=== PATIENT | female | born 1990 | race Caucasian/White ===

== ENCOUNTER 2016-09-22 10:52 | Inpatient (IN) ==
--- NOTE | 2016-09-22 11:34 | EKG Report ---
Test Performed on : 09/22/2016 11:31:05 AM Test Reason : NUMBNESS Blood Pressure : / mmHG Vent. Rate : 060 BPM Atrial Rate : 060 BPM P-R Int : 134 ms QRS Dur : 084 ms QT Int : 418 ms P-R-T Axes : 052 053 017 degrees QTc Int : 418 ms Normal sinus rhythm. Normal ECG When compared with ECG of 30-MAY-2016 13:25, Vent. rate has decreased BY 66 BPM T wave inversion now evident in Anterior leads Unconfirmed Result
[2016-09-22] MEDS ORDERED: NS 1,000 ML IV ONE (11:37)
--- NOTE | 2016-09-22 12:19 | Diag Imaging Result Doc PS360 ---
EXAM: HEAD W/O CONTRAST HISTORY: NUMBNESS COMPARISON: 06/09/2016 FINDINGS: There is encephalomalacia from an old right-sided infarct. No parenchymal hemorrhage. No epidural or subdural hematoma. No subarachnoid hemorrhage. No mass identified on this noncontrasted exam. No hydrocephalus. No sinus opacification and no air-fluid levels. IMPRESSION: 1.No hemorrhage 2.Old right infarct. Electronically signed by Blue Workman 09/22/2016 12:17 PM
[2016-09-22 12:30] LABS: URINE CULTURE PL NEEDED? NO
[2016-09-22] MEDS ORDERED: NORCO-7.5 PO ONE (12:40)
[2016-09-22] MEDS ORDERED: NORCO-7.5 ONE (12:41)
[2016-09-22 12:45] LABS: UR AMPHETAMINES QUAL NONE DETECTED (NONE DETECT); UR BARBITUATES QUAL NONE DETECTED (NONE DETECT); UR BENZODIAZEPIN QUAL PRESUMPTIVE POSITIVE (NONE DETECT); UR CANNABINOIDS QUAL NONE DETECTED (NONE DETECT); UR COCAINE QUAL NONE DETECTED (NONE DETECT); UR MDMA QUAL NONE DETECTED (NONE DETECT); UR METHADONE QUAL NONE DETECTED (NONE DETECT); UR METHAMPHETAMINE QUAL NONE DETECTED (NONE DETECT); UR OPIATES QUAL PRESUMPTIVE POSITIVE (NONE DETECT); UR OXYCODONE QUAL NONE DETECTED (NONE DETECT); UR PCP QUAL NONE DETECTED (NONE DETECT); UR TCA QUAL PRESUMPTIVE POSITIVE (NONE DETECT)
[2016-09-22 12:58] LABS: BILIRUBIN URINE NEGATIVE (NEGATIVE); BLOOD URINE NEGATIVE (NEGATIVE); CLARITY CLEAR (CLEAR); COLOR YELLOW; GLUCOSE URINE NEGATIVE (NEGATIVE); LEUKOCYTES URINE NEGATIVE (NEGATIVE); NITRITE URINE NEGATIVE (NEGATIVE); PH URINE 6.5; PROTEIN URINE NEGATIVE (NEGATIVE); UROBILINOGEN URINE NORMAL
[2016-09-22 13:01] LABS: URINE EPITHELIAL CELLS <10 /HPF (<10); URINE SOURCE CLEAN CATCH
--- NOTE | 2016-09-22 13:06 | Diag Imaging Result Doc PS360 ---
EXAM: CHEST-1 VIEW HISTORY: NUMBNESS COMMENT: Compared to the previous study of 06/13/2016 the alveolar opacities which were present previously have almost completely resolved. There is some residual atelectasis in the left base and blunting of the left costophrenic angle. There is still some volume loss with shift of the mediastinum to the left. IMPRESSION: Residual left lower lobe atelectasis and small pleural effusion. Electronically signed by Thuan Eli 09/22/2016 1:03 PM
[2016-09-22 13:22] LABS: MANUAL DIFF NEEDED? NO
[2016-09-22 13:26] LABS: EOS# 0.01 X1000 (0.0-0.7); EOS% 0.2 % (0.0-10.0); HEMOGLOBIN 14.2 g/dL (12.0-16.0); IMM GRAN# 0.01 X1000 (0.0-0.04); IMM GRAN% 0.2 % (0.0-0.5); LYMPH# 1.82 X1000 (1.2-3.4); LYMPH% 39.9 % (20.5-51.1); MCH 27.6 PG (27-31); MCHC 32.3 g/dL (33-37); MCV 85.4 FL (81-99); MONO# 0.22 X1000 (0.11-0.59); MONO% 4.8 % (1.7-9.3); MPV 9.6 FL (7.4-10.4); NEUT% 54.9 % (42.2-75.2); PLT 206 X1000 (130-400); RBC 5.15 XMIL (4.2-5.4)
[2016-09-22 13:52] LABS: INR 1.03 (0.86-1.15); PROTIME 13.8 Seconds (12.1-15.5)
[2016-09-22 13:53] LABS: AGAP 11; ALBUMIN 4.4 g/dL (3.5-5.0); ALKALINE PHOSPHATASE 98 U/L (32-104); BUN 11 mg/dL (8-22); CALCIUM 8.9 mg/dL (8.8-10.2); CHLORIDE 104 mmol/L (98-107); COSMO 283; GOT 24 U/L (10-30); GPT 22 U/L (10-36); POTASSIUM 3.9 mmol/L (3.5-5.1); PTT PL 28.1 Seconds (22.6-43.9); SODIUM 143 mmol/L (136-145); TCO2 27 mmol/L (25-35); TOTAL PROTEIN 7.3 g/dL (6.3-8.3)
--- NOTE | 2016-09-22 14:04 | PROVIDER DOCUMENTATION ---
This chart was entered by Carolann Lopez Scribe, acting as scribe for Adrian Law MD. HPI-Neurological Disorder - General Chief Complaint: Numbness Stated Complaint: STROKE LIKE SX Time Seen by Provider: 09/22/16 11:08 Source: patient Allergies/Adverse Reactions: Patient Allergies Allergy/AdvReac Type Severity Reaction Status Date / Time amoxicillin trihydrate * Allergy Mild RASH Verified 09/22/16 11:08 [From Amoxil] Home Medications: Home Medication List Medication Instructions Recorded Confirmed Last Taken Type Amitriptyline [Elavil] 25 mg PO QHS 09/22/16 09/22/16 Unknown History Ascorbic Acid 500 mg PO DAILY 09/22/16 09/22/16 Unknown History Aspirin 81 mg PO DAILY 09/22/16 09/22/16 Unknown History Baclofen 10 mg PO TID 09/22/16 09/22/16 Unknown History Buspirone HCl 7.5 mg PO BID 09/22/16 09/22/16 Unknown History Clonazepam 1 mg PO BID 09/22/16 09/22/16 Unknown History Fentanyl 1 each TD DIRECTED 09/22/16 09/22/16 Unknown History Gabapentin 900 mg PO TID 09/22/16 09/22/16 Unknown History Guaifenesin [Guaifenesin ER] 1,200 mg PO BID 09/22/16 09/22/16 Unknown History Levetiracetam 500 mg PO BID 09/22/16 09/22/16 Unknown History Metoprolol Tartrate 12.5 mg PO BID 09/22/16 09/22/16 Unknown History Oxycodone HCl 5 mg PO Q8H PRN PRN 09/22/16 09/22/16 Unknown History Ranitidine [Zantac] 150 mg PO DAILY 09/22/16 09/22/16 Unknown History Sennosides [Senna] 8.6 mg PO BID 09/22/16 09/22/16 Unknown History Venlafaxine E.r. [Effexor Xr] 75 mg PO DAILY 09/22/16 09/22/16 Unknown History - History of Present Illness-Neuro Nature of Presenting Problem: Pt is a 26 yof who came to the ED with a cc of stroke like symptoms. 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 Pt reports this year before her strokes she had a hole in her heart repaired. Pt mother reports the pt was sleeping in the chair last night and when she woke up she asked where she was. Then the pt was saying he left side could not move, which has been paralysed for a year now. Pt was confused, then the pt came to and was stating that it feels like she was having another stroke because the right side of her body was weak and her right eye feels like its about to fall out. Pt can normally move the right side of her body. Severity: reports: moderate Onset/Duration: reports: last night Timing: reports: still present Character of Altered Mental Status: reports: confused, agitated Any recent trauma/injury?: reports: none Character of Deficits: reports: new weakness, altered sensation, vision problem/ glaucoma New weakness or altered sensation location:: reports: RUE, RLE Cognitive Baseline: alert, oriented x3 Gait Baseline: unable to walk Associated Symptoms: reports: weakness Similar Symptoms Previously?: Yes Recently seen or treated by another doctor?: Yes Review of Systems - Adult - REVIEW OF SYSTEMS - ADULT Constitutional: denies: chills, fever Eyes: reports: no symptoms reported Ears, Nose, Mouth & Throat: reports: no symptoms reported Cardiovascular: denies: chest pain, irregular heart rate Respiratory: reports: no symptoms reported Gastrointestinal: denies: diarrhea, nausea, vomiting Genitourinary: reports: no symptoms reported Musculoskeletal: reports: no symptoms reported Integumentary: reports: no symptoms reported Neurological: reports: headache/migraines, numbness. denies: seizure, slurred speech, syncope Psychiatric: denies: anxiety, emotional problems Endocrine: reports: no symptoms reported Hematologic/Lymphatic: reports: no symptoms reported Allergic/Immunologic: reports: no symptoms reported All Other Systems: Reviewed and Negative Past History - Adult - PAST MEDICAL HISTORY-ADULT Review of Records: reports: Old Records Reviewed, Nursing Assessment Review, Medications Reviewed, Social history reviewed & non-contributory. Major Childhood Illnesses: reports: denies history Cardiovascular: reports: denies history Respiratory: reports: asthma Gastrointestinal: reports: denies history Obstetrical/Gynecological: reports: denies history Genitourinary: reports: denies history Musculoskeletal: reports: other (spina bifida) Neurological: reports: denies history Endocrine/Immune: reports: denies history Other Conditions: reports: denies history - PRIOR SURGERIES/PROCEDURES Surgical/Procedure History: reports: cholecystectomy, , other (spina bifida sx) - IMMUNIZATION STATUS Childhood Immunizations: See Nurse Assessment Flu Vaccine: See Nurse Assessment Physical Exam- Neurological - Physical Exam-Neuro Initial Vital Signs Reviewed: Yes General Appearance: alert, mild distress, thin Eye Exam: bilateral eye: normal inspection, PERRL HENMT: normocephalic/atraumatic, moist mucous membranes Head Injury: no evidence of injury Neck: non-tender, full range of motion Respiratory: chest non-tender, lungs clear, normal breath sounds Cardiovascular: normal peripheral pulses, regular rate, rhythm Abdominal Exam: normal bowel sounds, non tender, soft Extremity: other (no strength in left side; right side). negative: normal gait hi lo driver Exam: normal hearing, normal speech Motor/Sensory: weak motor strength LUE, weak motor strength LLE Neurologic: grossly normal Integumentary: normal turgor Psych/Mental Status: normal mood/affect, normal thought content, normal thought process, oriented x 3 Progress - PLAN OF CARE/RESULTS Progress/Plan/Lab Results: Vital Signs - 8 hr 09/22/16 10:58 09/22/16 11:30 09/22/16 12:08 Pulse Rate 63 60 54 L Respiratory Rate 20 22 21 Blood Pressure 115/071 110/73 105/5 O2 Sat by Pulse Oximetry 97 96 97 09/22/16 12:15 09/22/16 12:30 09/22/16 12:45 Pulse Rate 56 L 61 61 Respiratory Rate 21 17 19 Blood Pressure 109/65 112/71 118/77 O2 Sat by Pulse Oximetry 96 95 97 09/22/16 13:00 09/22/16 13:15 09/22/16 13:30 Pulse Rate 51 L 52 L 54 L Respiratory Rate 16 22 19 Blood Pressure 109/70 114/73 116/74 O2 Sat by Pulse Oximetry 99 96 97 Laboratory Results - last 24 hr 09/22/16 09/22/16 09/22/16 12:21 12:21 12:21 WBC RBC Hgb Hct MCV MCH MCHC RDW Std Deviation Plt Count MPV Immature Gran % (Auto) Neut % (Auto) Lymph % (Auto) [place] % (Auto) Eos % (Auto) Baso % (Auto) Immature Gran # (Auto) Neut # (Auto) Lymph # (Auto) [place] # (Auto) Eos # (Auto) Baso # (Auto) PT INR APTT (Factor Assay) Sodium Potassium Chloride Carbon Dioxide Anion Gap BUN Creatinine Estimated GFR/1.73 m2 BUN/Creatinine Ratio Glucose Calculated Osmolality Calcium Magnesium Total Bilirubin AST ALT Alkaline Phosphatase Troponin T Total Protein Albumin Globulin Albumin/Globulin Ratio Urine Source CLEAN CATCH Urine Color YELLOW Urine Clarity CLEAR Urine pH 6.5 Ur Specific [place] 1.010 Urine Protein NEGATIVE Urine Ketones NEGATIVE Urine Blood NEGATIVE Urine Nitrite NEGATIVE Urine Bilirubin NEGATIVE Urine Urobilinogen NORMAL Urine Microscopic RBC Not Reportable Urine WBC NEGATIVE Ur Epithelial Cells <10 Urine Glucose NEGATIVE Urine Test NEGATIVE Urine Opiates Screen PRESUMPTIVE POSITIVE A Ur Oxycodone Screen NONE DETECTED Urine Methadone Screen NONE DETECTED Ur Barbituates Screen NONE DETECTED Ur Tricyclics Screen PRESUMPTIVE POSITIVE A Ur Phencyclidine Scrn NONE DETECTED Ur Amphetamines Screen NONE DETECTED U Methamphetamines Scrn NONE DETECTED Urine MDMA Screen NONE DETECTED U Benzodiazepines Scrn PRESUMPTIVE POSITIVE A Urine Cocaine Screen NONE DETECTED U Cannabinoids Screen NONE DETECTED 09/22/16 09/22/16 09/22/16 13:10 13:10 13:10 WBC 4.56 L RBC 5.15 Hgb 14.2 Hct 44.0 MCV 85.4 MCH 27.6 MCHC 32.3 L RDW Std Deviation 14.0 Plt Count 206 MPV 9.6 Immature Gran % (Auto) 0.2 Neut % (Auto) 54.9 Lymph % (Auto) 39.9 [place] % (Auto) 4.8 Eos % (Auto) 0.2 Baso % (Auto) 0.0 Immature Gran # (Auto) 0.01 Neut # (Auto) 2.50 Lymph # (Auto) 1.82 [place] # (Auto) 0.22 Eos # (Auto) 0.01 Baso # (Auto) 0.00 PT INR APTT (Factor Assay) Sodium 143 Potassium 3.9 Chloride 104 Carbon Dioxide 27 Anion Gap 11 BUN 11 Creatinine 0.5 Estimated GFR/1.73 m2 > 60 BUN/Creatinine Ratio 22 Glucose 78 Calculated Osmolality 283 Calcium 8.9 Magnesium Total Bilirubin 0.20 AST 24 ALT 22 Alkaline Phosphatase 98 Troponin T < 0.010 Total Protein 7.3 Albumin 4.4 Globulin 3.0 Albumin/Globulin Ratio 2.0 Urine Source Urine Color Urine Clarity Urine pH Ur Specific [place] Urine Protein Urine Ketones Urine Blood Urine Nitrite Urine Bilirubin Urine Urobilinogen Urine Microscopic RBC Urine WBC Ur Epithelial Cells Urine Glucose Urine Test Urine Opiates Screen Ur Oxycodone Screen Urine Methadone Screen Ur Barbituates Screen Ur Tricyclics Screen Ur Phencyclidine Scrn Ur Amphetamines Screen U Methamphetamines Scrn Urine MDMA Screen U Benzodiazepines Scrn Urine Cocaine Screen U Cannabinoids Screen 09/22/16 09/22/16 13:10 13:10 WBC RBC Hgb Hct MCV MCH MCHC RDW Std Deviation Plt Count MPV Immature Gran % (Auto) Neut % (Auto) Lymph % (Auto) [place] % (Auto) Eos % (Auto) Baso % (Auto) Immature Gran # (Auto) Neut # (Auto) Lymph # (Auto) [place] # (Auto) Eos # (Auto) Baso # (Auto) PT 13.8 INR 1.03 APTT (Factor Assay) 28.1 Sodium Potassium Chloride Carbon Dioxide Anion Gap BUN Creatinine Estimated GFR/1.73 m2 BUN/Creatinine Ratio Glucose Calculated Osmolality Calcium Magnesium 2.2 Total Bilirubin AST ALT Alkaline Phosphatase Troponin T Total Protein Albumin Globulin Albumin/Globulin Ratio Urine Source Urine Color Urine Clarity Urine pH Ur Specific [place] Urine Protein Urine Ketones Urine Blood Urine Nitrite Urine Bilirubin Urine Urobilinogen Urine Microscopic RBC Urine WBC Ur Epithelial Cells Urine Glucose Urine Test Urine Opiates Screen Ur Oxycodone Screen Urine Methadone Screen Ur Barbituates Screen Ur Tricyclics Screen Ur Phencyclidine Scrn Ur Amphetamines Screen U Methamphetamines Scrn Urine MDMA Screen U Benzodiazepines Scrn Urine Cocaine Screen U Cannabinoids Screen Orders Category Date Time Status Cardiac Monitoring DIRECTED Care 09/22/16 11:17 Active Finger Stick Blood Sugar (ED) DIRECTED Care 09/22/16 11:17 Active Misc. NRSG Communication Order DIRECTED Care 09/22/16 11:17 Active Oxygen Therapy- ED Nursing DIRECTED Care 09/22/16 11:17 Active Saline Loc NOW Care 09/22/16 11:17 Active CHEST-1 VIEW [RAD] Stat Exams 09/22/16 11:17 Completed HEAD W/O CONTRAST [CT] Stat Exams 09/22/16 11:17 Completed CBC WITH ELECTRONIC DIFF [HEME] Stat Lab 09/22/16 13:10 Completed COMPREHENSIVE METABOLIC PANEL [CHEM] Stat Lab 09/22/16 13:10 Completed MAGNESIUM [CHEM] Stat Lab 09/22/16 13:10 Completed TEST-URINE [PREG] Stat Lab 09/22/16 12:21 Completed [address]IME WITH INR PL [COAG] Stat Lab 09/22/16 13:[address] [COAG] Stat Lab 09/22/16 13:10 Completed TROPONIN T Stat Lab 09/22/16 13:[address] W/POSS RFLX CULT [URINALYSIS] Stat Lab 09/22/16 12:21 Completed URINE DRUG SCREEN PL Stat Lab 09/22/16 12:21 Completed 0.9% Sodium Chloride Inj [Ns] 1,000 ml Med 09/22/16 11:37 Active IV 250 mls/hr Hydrocodone/APAP 7.5 mg/325 mg [Ryegate-7.5] Med 09/22/16 12:41 Discontinued 1 each .ROUTE .STK-MED ONE Hydrocodone/APAP 7.5 mg/325 mg [Ryegate-7.5] Med 09/22/16 12:40 Discontinued 1 each PO NOW ONE EKG [EKG] Stat Ther 09/22/16 11:17 Draft Result Diagrams: 09/22/16 13:10 09/22/16 13:10 - REASSESSMENT Reassessment #1 Time Reassessed: 14:02 Status: improving (Pt is doing better and agrees to be admitted to [place]) - CONSULTS/PCP/HOSPITALIST Notification Time Discussed: 14:03 Reason/Comments: Admit to Dr. Machado Consult Disposition: Admit Departure - Departure Time of Disposition Decision: 14:03 DIAGNOSIS: Numbness on right side Disposition: ADMITTED INPATIENT 09 Certified Medical Emergency: Emergent Condition: Stable Referrals and Follow-Ups: Alvaro Beatty [Primary Care Provider] - - Critical Care Note This patient required my direct & personal management of CC.: No This chart was documented by the indicated scribe, (Carolann Lopez Scribe) and accurately reflects the services I performed and decisions made by me, Adrian Law MD, as attested by the provider's signature.
--- NOTE | 2016-09-22 15:54 | Diag Imaging Result Doc PS360 ---
EXAM: MRI BRAIN W W/O CONTRAST INDICATION: CVA COMPARISON: CT head dated 09/22/2016. No prior MRI brain is available for comparison. FINDINGS: There is no evidence of acute infarct. There is encephalomalacia involving the right temporal lobe, right parietal lobe, and right frontal lobe in the distribution of the right MCA. There is no hydrocephalus. There is no discrete intracranial mass, mass effect, or intracranial hemorrhage. There is no evidence of abnormal intracranial enhancement. Surrounding soft tissues and bony structures are essentially unremarkable. IMPRESSION: Right hemispheric encephalomalacia but no evidence of acute intracranial pathology. Electronically signed by Vadim Boyle 09/22/2016 3:52 PM
[2016-09-22] MEDS ORDERED: LIORESAL PO SCH (17:45)
[2016-09-22] MEDS ORDERED: NEURONTIN PO SCH (17:45)
[2016-09-22] MEDS ORDERED: NICODERM PATCH TD ONE (18:05)
[2016-09-22] MEDS ORDERED: LIORESAL PO ONE (18:07)
[2016-09-22] MEDS ORDERED: NEURONTIN PO ONE (18:07)
[2016-09-22] MEDS ORDERED: DURAGESIC 25 MICROGM/HR PATCH TD SCH (18:30)
[2016-09-22] MEDS: OXY IR PO PRN (19:29)
[2016-09-22] MEDS: BUSPAR PO SCH (20:39)
[2016-09-22] MEDS: MUCINEX PO SCH (20:39)
[2016-09-22] MEDS: KEPPRA PO SCH (20:40)
[2016-09-22] MEDS: NEURONTIN PO SCH (20:40)
[2016-09-22] MEDS: KLONOPIN PO SCH (20:41)
[2016-09-22] MEDS: SENOKOT PO SCH (20:42)
--- NOTE | 2016-09-22 20:59 | HISTORY AND PHYSICAL ---
CHIEF COMPLAINT: Numbness to right side. HISTORY OF PRESENT ILLNESS: This is a 26-year-old female with a history of spina bifida and asthma and prior stroke. She presents to the emergency room complaining of a new onset of right- sided pain weakness as well as some confusion. Her mother felt like that she might be having another stroke and so she brought her in for further evaluation and treatment. The patient has had a stroke in the past and due to her stroke in the past she does have left-sided paralysis which has been present for about a year. Labs were essentially negative. CT of the head, as well as MRI of the brain revealed no acute processes. She is being admitted for further evaluation and treatment. PAST MEDICAL HISTORY: 1. Spina bifida. 2. Asthma. 3. CVA x1 year. SURGICAL HISTORY: 1. Cholecystectomy. 2. . 3. Spina bifida repair. SOCIAL HISTORY: She does live with the family. She denies alcohol or illicit drug use. She does smoke about half a pack a day. ALLERGIES: Amoxicillin. HOME MEDICATIONS: A list will be obtained. REVIEW OF SYSTEMS: A 14 point review of systems is discussed with the patient with pertinent positives being stated in HPI. She denies any dizziness, any change in her vision, any chest pain, palpitations, nausea, vomiting. PHYSICAL EXAMINATION: GENERAL: This is a 26-year-old female, who is lying in the bed, in no distress. VITAL SIGNS: Blood pressure is 109/65, heart rate of 44, respirations are 20, temperature is 97.7 degrees oral, with room air saturations 99%. HEENT: Head is normocephalic, atraumatic. Pupils equal, round, react to light. EOMs are intact. Sclerae are anicteric. Mucous membranes are moist. CARDIOVASCULAR: Regular rate and rhythm. S1, S2 appreciated. PULMONARY: Breath sounds are clear with no increased work of breathing noted. GASTROINTESTINAL: Abdomen is soft, nontender, nondistended. Bowel sounds in all 4 quadrants. EXTREMITIES: No clubbing, cyanosis, or edema. MUSCULOSKELETAL: She has no movement to the left arm or leg. Right arm movement has returned back to normal as per the mother. Right lower extremity is "almost back to normal." NEUROLOGIC: She is alert and oriented x3. DIAGNOSTIC DATA: WBC is 4.5, with hemoglobin 14.2, hematocrit 44, and platelets of 206,000. INR is 1.03. Sodium is 143, potassium 3.9, BUN 11, creatinine 0.5, with a glucose of 78. Troponin is less than 0.010. Urinalysis is essentially negative. Urine drug screen is positive for opiates, tricyclics, and benzodiazepines. CT of the head revealed no hemorrhage and an old right infarct. MRI of the brain revealed right hemispheric encephalomalacia but no evidence of acute intracranial pathology. ASSESSMENT AND PLAN: This is a 25-year-old female, who is lying in the bed, in no distress. 1. Right-sided weakness, possible transient ischemic attack. The patient is back to her baseline now. Symptoms have resolved. 2. Bradycardia. We will hold her Lopressor tonight. We will continue the rest of her medicines and trend vital signs. 3. Tobacco abuse. The patient will be admitted to a floor bed. She will be placed on telemetry. As she has returned to baseline we will continue her home medications, although we will hold her Lopressor as heart rate is down in the 40s, we are not sure if this is normal for her or not. We will restart a regular diet. The patient stopped her Plavix 4 weeks ago pending throat surgery. It is very likely she had some sort of neurological event, and very likely TIA symptoms have resolved. We will continue to hold the Plavix and instructed the mother to talk to her neurologist on Tuesday scheduled appointment regarding restarting the Plavix. She is not having surgery. Further treatments pending hospital course. Dictated by LALY Soria for Will Machado MD cc: LALY Soria MD
[2016-09-22] MEDS ORDERED: ELAVIL PO SCH (21:00)
[2016-09-22] MEDS ORDERED: LOPRESSOR PO SCH (21:00)
[2016-09-23] MEDS: LIORESAL PO SCH ×3 (02:27→13:19)
[2016-09-23] MEDS: NEURONTIN PO SCH ×3 (05:10→13:19)
[2016-09-23 08:22] VITALS: BP 101/60
[2016-09-23] MEDS: MORPHINE IV ONE ×2 (08:37→13:25)
[2016-09-23] MEDS: BUSPAR PO SCH (08:38)
[2016-09-23] MEDS: SENOKOT PO SCH (08:38)
[2016-09-23] MEDS: KEPPRA PO SCH (08:38)
[2016-09-23] MEDS: KLONOPIN PO SCH (08:38)
[2016-09-23] MEDS: MUCINEX PO SCH (08:39)
[2016-09-23] MEDS ORDERED: EFFEXOR XR PO SCH (09:00)
[2016-09-23] MEDS ORDERED: ASPIRIN PO SCH (09:00)
[2016-09-23] MEDS ORDERED: NICODERM PATCH TD SCH (09:00)
[2016-09-23] MEDS ORDERED: VITAMIN C PO SCH (09:00)
[2016-09-23] MEDS ORDERED: ZANTAC PO SCH (09:00)
--- NOTE | 2016-09-23 11:25 | DISCHARGE SUMMARY ---
ADMISSION DATE: 09/22/2016 DISCHARGE DATE: 09/23/2016 DIAGNOSES: 1. Right sided weakness. Possible transient ischemic attack resolved. 2. Bradycardia resolved. 3. Spina bifida. 4. History of asthma. DIAGNOSTICS: 1. CT of the head 09/22/2016 reveals encephalomalacia from an old right-sided infarct. No parenchymal hemorrhage. No epidural or subdural hematoma. No subarachnoid hemorrhage. No mass identified. No hydrocephalus. 2. 09/22/2016 MRI of the brain revealed right hemispheric encephalomalacia but no evidence of acute intracranial pathology. HOSPITAL COURSE: Ms. Heard presented to the emergency room with complaint after having an onset of right-sided numbness approximately 24 hours prior. Symptoms resolved, and by admission the mother stated that she was at her normal. CT of the head and MRI of the brain revealed no acute processes, an old right infarct. We did continue her medications. She had an uneventful hospitalization. PHYSICAL EXAMINATION: Cardiovascular: Regular rate and rhythm. S1 and S2 appreciated. Pulmonary: Breath sounds are clear with no increased work of breathing noted. Gastrointestinal: Abdomen is soft, nontender, nondistended. Bowel sounds in all 4 quadrants. Extremities: No clubbing, cyanosis, or edema. Neurologic: She is alert and oriented x3, at her baseline according to her mother. PHYSICAL EXAMINATION: Discharge Vital Signs: Blood pressure is 103/58 with a heart rate of 73, respirations 16, temperature 97.9 degrees oral with a room air saturation of 98%. DISCHARGED DIET: Regular. DISCHARGE MEDICATIONS: 1. Gabapentin 900 p.o. t.i.d. 2. Aspirin 81 mg daily. 3. Effexor XR 75 daily. 4. Senna 8.6 b.i.d. 5. BuSpar 7.5 b.i.d. 6. Keppra 500 b.i.d. 7. Fentanyl patch as directed. 8. Oxycodone 5 q.8 hours p.r.n. 9. Elavil 25 at bedtime. 10. Zantac 150 daily. 11. Metoprolol tartrate 112.5 b.i.d. 12. Baclofen 10 p.o. t.i.d. 13. Clonazepam 1 p.o. b.i.d. FOLLOWUP: She is to follow up with primary care physician in the next 1-2 weeks. She is being discharged home with family members in stable condition. Dictated by LALY Soria for Will Machado MD cc: LALY Soria MD
[2016-09-23] MEDS: OXY IR PO PRN (12:10)
[2016-09-23] MEDS ORDERED: MORPHINE IV ONE (13:16)
== END 2016-09-23 13:45 | disposition home or self-care (01) ==
LOC: P.ED 10:52 → P.MEDSURG 10:52 → OBSVTOIN 10:53
PROVIDERS: ATTEND Family Medicine

== ENCOUNTER 2019-06-18 09:41 | Inpatient (IN) ==
[2019-06-18] MEDS ORDERED: DUONEB (A & A) INH ONE (09:54)
[2019-06-18] MEDS ORDERED: NS 1,000 ML IV ONE (09:58)
[2019-06-18] MEDS ORDERED: XOPENEX NEB INH ONE (10:01)
[2019-06-18] MEDS ORDERED: SOLU-MEDROL IV ONE (10:03)
[2019-06-18] MEDS ORDERED: NS NEB INH SCH (10:15)
[2019-06-18 10:25] LABS: BASO# 0.01 X1000 (0.0-0.2); BASO% 0.1 % (0.0-0.8); EOS# 0.01 X1000 (0.0-0.7); EOS% 0.1 % (0.0-10.0); HEMATOCRIT 48.7 % (37.0-47.0); HEMOGLOBIN 15.8 g/dL (12.0-16.0); IMM GRAN# 0.04 X1000 (0.0-0.04); IMM GRAN% 0.2 % (0.0-0.5); LYMPH# 0.98 X1000 (1.2-3.4); MCH 28.4 PG (27-31); MCHC 32.4 g/dL (33-37); MCV 87.6 FL (81-99); MONO# 1.12 X1000 (0.11-0.59); MONO% 6.8 % (1.7-9.3); MPV 10.7 FL (7.4-10.4); NEUT# 14.21 X1000 (1.4-6.5); NEUT% 86.8 % (42.2-75.2); PLT 214 X1000 (130-400); RBC 5.56 XMIL (4.2-5.4); RDW 14.8 % (11.5-14.5); WBC 16.37 X1000 (4.8-10.8)
[2019-06-18 10:45] LABS: AGAP 18; ALB/GLOB RATIO 1.3; ALBUMIN 3.8 g/dL (3.5-5.0); ALKALINE PHOSPHATASE 108 U/L (32-104); BUN 15 mg/dL (8-22); CALCIUM 8.7 mg/dL (8.8-10.2); CHLORIDE 93 mmol/L (98-107); COSMO 272; CREATININE 0.6 mg/dL (0.5-0.9); ESTIMATED GFR > 60; GLUCOSE 111 mg/dL (70-104); GOT 36 U/L (10-30); GPT 18 U/L (10-36); POTASSIUM 4.9 mmol/L (3.5-5.1); SODIUM 135 mmol/L (136-145); TCO2 24 mmol/L (25-35); TOTAL BILIRUBIN 1.23 mg/dL (0.20-1.00); TOTAL PROTEIN 6.8 g/dL (6.3-8.3)
--- NOTE | 2019-06-18 10:51 | EKG Report ---
Test Performed on : 06/18/2019 09:56:18 AM Test Reason : sob Blood Pressure : / mmHG Vent. Rate : 135 BPM Atrial Rate : 135 BPM P-R Int : 136 ms QRS Dur : 074 ms QT Int : 364 ms P-R-T Axes : 055 065 035 degrees QTc Int : 546 ms Sinus tachycardia. Cannot rule out Anterior infarct (cited on or before 01-NOV-2017) Abnormal ECG When compared with ECG of 01-NOV-2017 15:10, No significant change was found Unconfirmed Result
[2019-06-18] MEDS ORDERED: LASIX IV ONE (11:02)
[2019-06-18 11:03] LABS: ALLEN TEST YES; BE 0.1 mmoll (-3.0-3.0); BLOOD TYPE ARTERIAL; HCO3-(ACT) 24.8 mmoll (20.0-26.0); METHB 0.8 % (0.0-1.5); O2(CT) 20.6 mL/dL (15.0-23.0); PCO2(98.6) 48 mmHg (35-45); PO2(98.6) 62 mmHg (60-100); SAMPLE BLOOD; SAO2 94.9 % (95.0-100.0); THB 16.1 g/dL (11.5-17.4); pH(98.6) 7.35 (7.35-7.45)
[2019-06-18 11:06] LABS: MODALITY NRB
[2019-06-18 11:47] LABS: INR 1.11; PROTIME 14.5 Seconds (11.0-16.0)
[2019-06-18 11:48] LABS: PTT 36.7 Seconds (22.3-41.8)
--- NOTE | 2019-06-18 12:44 | Diag Imaging Result Doc PS360 ---
CHEST-1 VIEW - 06/18/2019 INDICATION: sob COMPARISON: 12/09/2017 FINDINGS: There is diffuse heterogeneous infiltrate throughout the right lung. The left lung is fairly clear. Heart size is normal. No pneumothorax or large pleural effusion. IMPRESSION: Significant infiltrate throughout the right lung most suggestive of multilobar pneumonia. Correlate clinically. Electronically signed by Alvaro Tse 06/18/2019 12:42 PM
--- NOTE | 2019-06-18 13:05 | Diag Imaging Result Doc PS360 ---
CT ANGIOGRM PULMONARY ARTERIES - 06/18/2019 INDICATION: sob, hypoxia TECHNIQUE: Axial CT images were obtained after administering intravenous contrast. Coronal MIP images were generated. COMPARISON: Prior chest x-rays FINDINGS: There are enlarged lymph nodes in the right hilum and right side of the mediastinum. The largest right hilar lymph node measures 2.8 x 1.5 cm. The subcarinal lymph node is also enlarged measuring 3.3 x 2 cm. There is no pulmonary embolism. Heart and great vessels are normal. There is extensive infiltrate throughout all lobes of the right lung. There is also some minimal hazy infiltrate in the lateral left lung base. There is substantial bronchiectasis worst in the upper lobes. This is most visible in the left lung apex. This is mainly cylindrical bronchiectasis. Upper abdominal images are unremarkable. Bones are intact and well mineralized. Heart size is top normal. IMPRESSION: 1. Severe bilateral multilobar pneumonia right greater than left. 2. Reactive mediastinal and hilar lymphadenopathy. 3. No pulmonary embolism. This exam was performed using automated exposure control, adjustment of mA or kV according to patient size, and/or use of iterative reconstruction technique Electronically signed by Alvaro Tse 06/18/2019 1:03 PM
[2019-06-18] MEDS ORDERED: LEVAQUIN 500 MG/D5W 500 MG/100 ML IVPB IV ONE (13:45)
--- NOTE | 2019-06-18 14:01 | PROVIDER DOCUMENTATION ---
This chart was entered by Dahiana White Scribe, acting as scribe for Horacio Hayes MD. HPI-Respiratory General - General Chief Complaint: Shortness of Breath Stated Complaint: SOB Time Seen by Provider: 06/18/19 09:55 Source: patient, EMS Allergies/Adverse Reactions: Patient Allergies Allergy/AdvReac Type Severity Reaction Status Date / Time amoxicillin trihydrate * Allergy Mild RASH Verified 06/18/19 10:30 [From Amoxil] Home Medications: Home Medication List Medication Instructions Recorded Confirmed Last Taken Type Amphetamine Salts [Adderall] 10 mg PO BID 06/18/19 06/18/19 Unknown History Aspirin 81 mg PO DAILY 06/18/19 06/18/19 Unknown History Baclofen 20 mg PO 4XDAY 06/18/19 06/18/19 Unknown History Buspirone [Buspar] 0.5 tab PO BID 06/18/19 06/18/19 Unknown History Clonazepam 0.5 mg PO HS 06/18/19 06/18/19 Unknown History Gabapentin 800 mg PO 4XDAY 06/18/19 06/18/19 Unknown History Levetiracetam 500 mg PO BID 06/18/19 06/18/19 Unknown History Lurasidone HCl [Latuda] 80 mg PO HS 06/18/19 06/18/19 Unknown History Metoprolol Succinate 0.5 tab PO BID 06/18/19 06/18/19 Unknown History Oxycodone HCl/Acetaminophen 1 tab PO 4XDAY PRN 06/18/19 06/18/19 Unknown History [Endocet 10-325 mg Tablet] Ranitidine [Zantac] 150 mg PO DAILY 06/18/19 06/18/19 Unknown History Sennosides [Senna] 1 tab PO BID 06/18/19 06/18/19 Unknown History Tapentadol HCl [Nucynta ER] 150 mg PO BID 06/18/19 06/18/19 Unknown History Trazodone HCl 1 tab PO HS 06/18/19 06/18/19 Unknown History Venlafaxine E.r. [Effexor Xr] 75 mg PO BID 06/18/19 06/18/19 Unknown History - History of Present Illness-Resp Nature of Presenting Problem: 28yof presents to ED by EMS cc SOB, wheezing, cough, fever, chills, pain in right side chest only with coughing, decreased urine output and dark urine for 2 days. EMS reports pt o2 was 50% on 2lit so they gave albuterol treatment and put pt on 15lit non-rebreather in route to ED. Pt is followed by Dr. Rush and was advised by her to come to ED. Pt has hx of CVA, Sepsis, PFO, Heart Surgery. Pt o2 is 62% on room air and pt is unwell looking upon exam. Quality of Pain: reports: tightness Severity in ED: reports: severe Onset/Duration: reports: 2 days ago Timing: reports: still present, getting worse Cough Quality/Degree: reports: moderate Current Respiratory Medication Therapy: Initiated see nurses note Modifying Factors: worse with: exertion, coughing Associated Symptoms: reports: cough, fever/chills, hurts to breathe, shortness of breath, short of breath, wheezing Similar Symptoms Previously?: Yes Recently seen or treated by another doctor?: No Review of Systems - Adult - REVIEW OF SYSTEMS - ADULT Constitutional: reports: see HPI, chills, fever, fatique Eyes: reports: no symptoms reported Ears, Nose, Mouth & Throat: reports: no symptoms reported Cardiovascular: reports: see HPI, chest pain (right side only with coughing) Respiratory: reports: see HPI, cough, dyspnea on exertion, shortness of breath, wheezing Gastrointestinal: reports: no symptoms reported Genitourinary: reports: see HPI, urinary retention, other (dark urine) Musculoskeletal: reports: no symptoms reported Integumentary: reports: no symptoms reported Neurological: reports: no symptoms reported Psychiatric: reports: no symptoms reported Endocrine: reports: no symptoms reported Hematologic/Lymphatic: reports: no symptoms reported Allergic/Immunologic: reports: no symptoms reported All Other Systems: Reviewed and Negative Past History - Adult - PAST MEDICAL HISTORY-ADULT Review of Records: reports: Old Records Reviewed, Nursing Assessment Review, Medications Reviewed, Social history reviewed & non-contributory. Major Childhood Illnesses: reports: denies history Cardiovascular: reports: denies history Respiratory: reports: asthma Gastrointestinal: reports: denies history Obstetrical/Gynecological: reports: denies history Genitourinary: reports: denies history Musculoskeletal: reports: other (spina bifida) Neurological: reports: CVA, stroke deficits (LT SIDED PARALYSIS) Endocrine/Immune: reports: denies history Other Conditions: reports: denies history - PRIOR SURGERIES/PROCEDURES Surgical/Procedure History: reports: cholecystectomy, , other (spina bifida sx) - IMMUNIZATION STATUS Childhood Immunizations: See Nurse Assessment Flu Vaccine: See Nurse Assessment - FAMILY HISTORY Family History: reviewed, not pertinent Physical Exam-General - PHYSICAL EXAM-ADULT Initial Vital Signs Reviewed: Yes - CONSTITUTIONAL General Appearance: alert, moderate distress, anxious. negative: combative - EYES Eyes: PERRL/EOMI, pink conjunctivae. negative: pale conjunctivae - HEAD, EARS, NOSE, MOUTH & THROAT HENMT: normocephalic/atraumatic. negative: moist mucous membranes (dry), angioedema - RESPIRATORY Respiratory: chest non-tender, respiratory distress, decreased breath sounds, accessory muscle use, wheezing (right greater than left but bilateral), retractions - CARDIOVASCULAR Cardiovascular: normal peripheral pulses, tachycardia. negative: bradycardia - GASTROINTESTINAL (ABDOMEN) Abdominal Exam: normal bowel sounds. negative: rebound - MUSCULOSKELETAL Extremity: normal inspection, normal capillary refill - SKIN Integumentary: normal color. negative: jaundice, rash - NEUROLOGIC Neurologic: motor weakness (left side from previous CVA) - PSYCHIATRIC Psych/Mental Status: oriented x 3, anxious. negative: disheveled - HEART Score HEART Score: History: Moderately Suspicious HEART Score: ECG: Non-Specific Repolarization Disturbance/LBBB/PM HEART Score: Age: < or = 45 Years HEART Score: Risk Factors for Atherosclerotic Disease: 1 or 2 Risk Factors HEART Score: Troponin: < or = Normal Limit Total HEART Score:: 3 Progress - PLAN OF CARE/RESULTS Progress/Plan/Lab Results: Vital Signs - 8 hr 06/18/19 09:52 06/18/19 11:28 06/18/19 12:47 Temperature 98.9 F Pulse Rate 135 H 125 H 116 H Respiratory Rate 29 H 32 H 24 Blood Pressure 128/87 121/83 O2 Sat by Pulse Oximetry 89 L 90 L 97 06/18/19 13:22 Temperature Pulse Rate 112 H Respiratory Rate 21 Blood Pressure 106/73 O2 Sat by Pulse Oximetry 97 Bedside Urine ED: Urine Bedside Start: 06/18/19 11:53 Freq: Status: Active Protocol: Activity Type Activity Date Activity User E-Sign Co-Sign Detail Recorded Client Recorded Date Recorded By Document 06/18/19 11:53 [id number] 06/18/19 11:54 [id number] 06/18/19 11:53 Point of Care [Bedside Point of Care] -Lot # [id number] - Results Negative -Control Line Visible? Yes Laboratory Results - last 24 hr 06/18/19 06/18/19 06/18/19 10:11 10:11 10:11 WBC 16.37 H RBC 5.56 H Hgb 15.8 Hct 48.7 H MCV 87.6 MCH 28.4 MCHC 32.4 L RDW Std Deviation 14.8 H Plt Count 214 MPV 10.7 H Immature Gran % (Auto) 0.2 Neut % (Auto) 86.8 H Lymph % (Auto) 6.0 L Maverick % (Auto) 6.8 Eos % (Auto) 0.1 Baso % (Auto) 0.1 Immature Gran # (Auto) 0.04 Neut # (Auto) 14.21 H Lymph # (Auto) 0.98 L Maverick # (Auto) 1.12 H Eos # (Auto) 0.01 Baso # (Auto) 0.01 PT INR PTT (Actin FS) Specimen Type Sample Site pH pCO2 pO2 HCO3 Base Excess Oxyhemoglobin ABG O2 Sat (Calculated) ABG O2 Saturation ABG Carboxyhemoglobin ABG Methemoglobin Kvng Test A-a O2 Difference Total Hemoglobin Lactate Liter Flow Blood Gas Modality FiO2 % Sodium 135 L Potassium 4.9 Chloride 93 L Carbon Dioxide 24 L Anion Gap 18 BUN 15 Creatinine 0.6 Estimated GFR/1.73 m2 > 60 BUN/Creatinine Ratio 25 Glucose 111 H Calculated Osmolality 272 Calcium 8.7 L Total Bilirubin 1.23 H AST 36 H ALT 18 Alkaline Phosphatase 108 H Troponin T High Sens Chk-B-Pwmptntwmks Pept 4050 H Total Protein 6.8 Albumin 3.8 Globulin 3.0 Albumin/Globulin Ratio 1.3 Plasma Lactate 06/18/19 06/18/19 06/18/19 10:11 10:11 10:11 WBC RBC Hgb Hct MCV MCH MCHC RDW Std Deviation Plt Count MPV Immature Gran % (Auto) Neut % (Auto) Lymph % (Auto) Maverick % (Auto) Eos % (Auto) Baso % (Auto) Immature Gran # (Auto) Neut # (Auto) Lymph # (Auto) Maverick # (Auto) Eos # (Auto) Baso # (Auto) PT 14.5 INR 1.11 PTT (Actin FS) 36.7 Specimen Type Sample Site pH pCO2 pO2 HCO3 Base Excess Oxyhemoglobin ABG O2 Sat (Calculated) ABG O2 Saturation ABG Carboxyhemoglobin ABG Methemoglobin Kvng Test A-a O2 Difference Total Hemoglobin Lactate Liter Flow Blood Gas Modality FiO2 % Sodium Potassium Chloride Carbon Dioxide Anion Gap BUN Creatinine Estimated GFR/1.73 m2 BUN/Creatinine Ratio Glucose Calculated Osmolality Calcium Total Bilirubin AST ALT Alkaline Phosphatase Troponin T High Sens 62 H Dox-T-Bbheoxmvyxp Pept Total Protein Albumin Globulin Albumin/Globulin Ratio Plasma Lactate 1.6 06/18/19 10:55 WBC RBC Hgb Hct MCV MCH MCHC RDW Std Deviation Plt Count MPV Immature Gran % (Auto) Neut % (Auto) Lymph % (Auto) Maverick % (Auto) Eos % (Auto) Baso % (Auto) Immature Gran # (Auto) Neut # (Auto) Lymph # (Auto) Maverick # (Auto) Eos # (Auto) Baso # (Auto) PT INR PTT (Actin FS) Specimen Type ARTERIAL Sample Site R BRACHIAL pH 7.35 pCO2 48 H pO2 62 HCO3 24.8 Base Excess 0.1 Oxyhemoglobin 91.0 L ABG O2 Sat (Calculated) 20.6 ABG O2 Saturation 94.9 L ABG Carboxyhemoglobin 3.40 H ABG Methemoglobin 0.8 Kvng Test YES A-a O2 Difference 591.0 Total Hemoglobin 16.1 Lactate 1.20 Liter Flow 15.0 Blood Gas Modality NRB FiO2 % 100.0 Sodium Potassium Chloride Carbon Dioxide Anion Gap BUN Creatinine Estimated GFR/1.73 m2 BUN/Creatinine Ratio Glucose Calculated Osmolality Calcium Total Bilirubin AST ALT Alkaline Phosphatase Troponin T High Sens Ykj-A-Zslixpcgxof Pept Total Protein Albumin Globulin Albumin/Globulin Ratio Plasma Lactate Orders Category Date Time Status Kwok Cath Insertion ORDERED Care 06/18/19 12:39 Active CHEST-1 VIEW [RAD] Stat Exams 06/18/19 09:[address] ANGIOGRM PULMONARY ARTERIES [CT] Stat Exams 06/18/19 09:57 Completed ABG [RESP] Routine Lab 06/18/19 10:55 Completed BLOOD CULTURE [BLDCUL] Stat Lab 06/18/19 10:34 Results CBC WITH ELECTRONIC DIFF [HEME] Stat Lab 06/18/19 10:11 Completed COMPREHENSIVE METABOLIC PANEL [CHEM] Stat Lab 06/18/19 10:11 Completed LACTATE, PLASMA [CHEM] Stat Lab 06/18/19 10:11 Completed PRO B-NATRIURETIC PEPTIDE Stat Lab 06/18/19 10:11 Completed PROTIME WITH INR [COAG] Stat Lab 06/18/19 10:11 Completed PTT [COAG] Stat Lab 06/18/19 10:11 Completed TROPONIN T HIGH SENSITIVITY Stat Lab 06/18/19 10:11 Completed 0.9% Sodium Chloride Inj [Ns] 1,000 ml Med 06/18/19 09:58 Discontinued IV 999 mls/hr Albuterol 2.5MG/Ipratrop 0.5MG [Duoneb (A & A)] Med 06/18/19 09:54 Discontinued 3 ml INH NOW ONE Furosemide [Lasix] Med 06/18/19 11:02 Discontinued 20 mg IV NOW ONE Levalbuterol Neb [Xopenex Neb] Med 06/18/19 10:01 Discontinued 1.25 mg INH NOW ONE Levofloxacin 500 mg/D5w [Levaquin 500 mg/D5w] Med 06/18/19 13:45 Active 500 mg in 100 ml IV NOW Methylprednisolone Sod Succ [Solu-Medrol] Med 06/18/19 10:03 Discontinued 125 mg IV NOW ONE Sodium Chloride 0.9% Neb [Ns Neb] Med 06/18/19 10:15 Active 5 ml INH DIRECTED Aerosol Treatments Routine Oth 06/18/19 09:56 Active Aerosol Treatments Routine Oth 06/18/19 10:01 Active Aerosol Treatments Stat Oth 06/18/19 09:56 Active Aerosol Treatments Stat Oth 06/18/19 10:01 Active BIPAP Stat Oth 06/18/19 09:58 Active EKG [EKG] Stat Ther 06/18/19 09:55 Draft Result Diagrams: 06/18/19 10:11 06/18/19 10:11 - EKG 1 Time of EKG reading by physician:: 09:56 EKG Read and Signed by:: Horacio Hayes EKG Interpretation (*Must complete 3 of following elements*): Abnormal (cannot rule out anterior infarct, age undetermined) Rate: 135 Rhythm: Sinus tachy QRS: normal SD Interval: normal - XRAY 1 XRAY: Bilateral XRAY Study: Chest Impression: See EMR Report ( IMPRESSION: Significant infiltrate throughout the right lung most suggestive of multilobar pneumonia. Correlate clinically. Electronically signed by Alvaro Tse 06/18/2019 12:42 PM) - CT/MRI 1 Impression: See EMR Report ( IMPRESSION: 1. Severe bilateral multilobar pneumonia right greater than left. 2. Reactive mediastinal and hilar lymphadenopathy. 3. No pulmonary embolism. This exam was performed using automated exposure control, adjustment of mA or kV according to patient size, and/or use of iterative reconstruction technique Electronically signed by Alvaro Tse 06/18/2019 1:03 PM) - CONSULTS/PCP/HOSPITALIST Notification #1 *Consult/PCP/Hospitalist*: Gwendolyn/[facility]ALTH [facility] ASSISTANT Time Discussed: 13:52 Consult Disposition: Admit (Dr. Blackburn) Departure - Departure Date of Disposition Decision: 06/18/19 Time of Disposition Decision: 13:52 DIAGNOSIS: Pneumonia, Hypoxia, CHF (congestive heart failure), Elevated troponin, Respiratory distress Disposition: ADMITTED INPATIENT 09 Certified Medical Emergency: Emergent Condition: Serious Referrals and Follow-Ups: Charlotte Gaviria MD [Primary Care Provider] - - Critical Care Note This patient required my direct & personal management of CC.: Yes Total Time (mins): 120 Critical Care Statement: This patient required my direct personal management to treat or rule out processes, the absence of which, could potentiallly result in sudden, clinically significant life or limb threatening deterioration. Attestation - Physician/ KENAN Attestation Patient care was provided by Advanced Practice Provider:: No The physician spent face to face time with patient:: Yes Advanced Practice Provider documentation review:: Supervising physician onsite and consulted in the evaluation and care of this patient. The physician did have a face to face encounter with the patient. This chart was documented by the indicated scribe, (Dahiana White Scribe) and accurately reflects the services I performed and decisions made by me, Horacio Hayes MD, as attested by the provider's signature.
--- NOTE | 2019-06-18 15:15 | HISTORY AND PHYSICAL ---
PRIMARY CARE PHYSICIAN: Dr. Charlotte Gaviria. CHIEF COMPLAINT: Fever, chills, body ache and a productive green cough over the past 4 days that has progressively worsened. HISTORY OF PRESENTING ILLNESS: This is a 28-year-old female who presents to [facility] via EMS with a 4-day history of subjective fever, chills, body aches and a productive cough of light green sputum also has had some shortness of breath with this as well. Workup showed on arrival she had a temperature of 98.9 degrees, pulse 135, respirations 29, saturating 89% on a 15% nonrebreather. Workup in the emergency room showed a white blood cell count of 16.37. Her chest x-ray showed significant infiltrate throughout the right lung most suggestive of a multilobar pneumonia. We did a pulmonary arteriogram that showed severe bilateral multilobar pneumonia right greater than left and a reactive mediastinal and hilar lymphadenopathy. She was placed on BiPAP and is now saturating 97% on her BiPAP. She will be admitted to the intensive care unit for further evaluation and treatment. 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 PAST SURGICAL HISTORY: Cholecystectomy, , D and C and a VSD repair. FAMILY HISTORY: Reviewed and noncontributory. SOCIAL HISTORY: She currently lives with family smokes 1 to 2 cigarettes daily, has cut way back recently was a half a pack a day smoker and has been a smoker for 15 years. Denied any alcohol or illicit drug use. ALLERGIES: Amoxicillin. HOME MEDICATIONS: She takes Adderall 10 mg p.o. b.i.d. will be held, aspirin 81 mg p.o. daily, baclofen 20 mg p.o. 4 times daily, BuSpar 15 mg half a tablet p.o. b.i.d., clonazepam 0.5 mg p.o. at bedtime, gabapentin 800 mg p.o. 4 times daily, Keppra 500 mg p.o. b.i.d., Latuda 80 mg p.o. at bedtime, metoprolol 25 mg 1/2 a tablet p.o. b.i.d., oxycodone 10 one p.o. 4 times daily p.r.n., Zantac 150 mg p.o. daily, senna 8.6 mg 1 tablet p.o. b.i.d., Nucynta ER 150 mg p.o. b.i.d., trazodone 50 mg p.o. at bedtime and venlafaxine 75 mg p.o. b.i.d. LABORATORY DATA: Showed a white blood cell count of 16.37, hemoglobin 15.8, hematocrit 48.7, platelets 214,000, PT and INR of 14.5 and 1.11. ABG showed a pH of 7.35, pCO2 48, PO2 62, bicarb 24.8 and this was on a 15% nonrebreather. Sodium 135, potassium 4.9, chloride 93, CO2 24, BUN of 15, creatinine 0.6, glucose 111, troponin 62, proBNP 4050. Plasma lactate of 1.6. Chest x-ray showed significant infiltrate throughout the right lung most suggestive of a multilobar pneumonia. Pulmonary arteriogram showed severe bilateral multilobar pneumonia right greater than left with reactive mediastinal and hilar lymphadenopathy and no pulmonary embolism. EKG showed sinus tachycardia at 135. REVIEW OF SYSTEMS: She was positive for a subjective fever, chills, body aches, cough, shortness of breath. Denied any chest pain, abdominal pain, constipation, diarrhea, burning or hurting with urination. PHYSICAL EXAMINATION: On arrival she had a temperature of 98.9 degrees, pulse 135, respirations 29, blood pressure 129/87 and was saturating 89% on a 15% nonrebreather, currently on a BiPAP at 97% O2 saturation. Heart rate is down to 112, blood pressure is 106/73. GENERAL: This is a 28-year-old female who is lying in the bed and answers questions appropriately. HEENT: Normocephalic, atraumatic. Normal ENT inspection. Oropharynx and nares are clear. Pupils are equal, round, reactive to light, accommodation. Extraocular movements are intact. NECK: Normal inspection, normal range of motion. LUNGS: With wheezing throughout lung rod with right greater than left, initially had some accessory muscle use but that has improved with the BiPAP now with equal lung expansion and chest wall movement. HEART: With some tachycardia but no murmurs, rubs, or gallops. ABDOMEN: Soft, nontender, nondistended. Bowel sounds were present x4 quadrants. MUSCULOSKELETAL: Normal inspection, normal capillary refill, normal color. NEUROLOGIC: She has motor weakness on her left side from her previous CVA. She also has spina bifida. ASSESSMENT: 1. Sepsis. 2. Bilateral multilobar pneumonia with right greater than left. 3. An acute respiratory failure. 4. Leukocytosis. 5. Tobacco abuse. OUR PLAN: She will be admitted to the intensive care unit placed on telemetry, O2 per protocol and is currently on BiPAP. We will consult Pulmonology, do incentive spirometry, healthy heart diet. SCDs for DVT prophylaxis. Will place on vancomycin per pharmacy protocol, Zosyn 3.375 g IV q.6, continue home medicines as previously identified, recheck CBC, BMP in the a.m. and further orders after seen by attending. Dictated by LALY Hollingsworth for Dae Bauman MD cc: MD Dae Veloz MD
[2019-06-18] MEDS: DUONEB (A & A) INH SCH ×3 (16:44→23:15)
[2019-06-18] MEDS ORDERED: TYLENOL PO PRN (16:44)
[2019-06-18] MEDS ORDERED: VANCOMYCIN IV PER PHARMACY MISC SCH (16:44)
[2019-06-18] MEDS: ZOSYN 3.375 GM in NS 50 ML IV SCH ×2 (17:57→22:45)
[2019-06-18] MEDS: PERCOCET-10 PO PRN (18:20)
[2019-06-18] MEDS: NEURONTIN PO SCH ×2 (18:38→22:45)
[2019-06-18] MEDS: LIORESAL PO SCH ×2 (18:38→22:44)
[2019-06-18] MEDS ORDERED: VANCOMYCIN 2 GM in NS 500 ML IV ONE (20:00)
[2019-06-18] MEDS ORDERED: TAPENTADOL HCL 150 MG PO SCH (21:00)
--- NOTE | 2019-06-18 21:29 | HISTORY AND PHYSICAL ---
Ms Heard is a 28 years old female who has had multiple admissions in the hospital for multifocal pneumonia, immunoglobulin deficiency. Last discharge was in 2017. Ms Heard has also been transferred on a different occasion to [facility] because of severe bilateral pneumonia. She comes this time because of shortness of breath. A chest x-ray did reveal significant infiltrate throughout the lung suggestive of a multilobar pneumonia. A CTA of the lungs confirms that, also shows reactive mediastinal and hilar lymphadenopathy and no pulmonary embolism. Ms Heard current vitals blood pressure is 122/79, pulse is 115, respiration is 31, temperature 98.2 degrees, she is saturating 95% on BiPAP. She came in with oxygen level of 89. Ms Heard uses supplemental oxygen at home. OBJECTIVE: Karlie Heard 28 years old female she is morbidly obese, she is currently under the BiPAP. Mucosa is pink and moist.Neck: Supple. No JVD. Chest: Air entry is bilateral reduced. There is diffuse bilateral wet crackles as well as rhonchi in both posterior and anterior lung rod Abdomen: Soft. Extremities: No pedal edema. I have reviewed her imaging studies. I have also reviewed her laboratory data which shows WBC of 16.37. Chemistry so far is unremarkable, pro B is elevated which I think is probably stress from the long disease. ASSESSMENT: 1. Acute on chronic hypoxemic respiratory failure. Patient is currently on the BiPAP, seems to be saturating better. 2. 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 Patient has been started on broad-spectrum intravenous antibiotics. Will get both Infectious Disease and Pulmonary Medicine to evaluate her. 3. Sepsis syndrome secondary to pneumonia. 4. Status post ventricular septal defect repair. 5. History of seizures. So for now we are going to admit Ms. Heard to the Critical Care Unit, continue with the BiPAP for now. We have consulted both Pulmonary Medicine and Infectious Disease. Ms Heard has been advised on tobacco cessation. We are going to keep her in the critical care unit for very close respiratory monitoring since she easily gets decompensated and needs to be intubated. Will continue with the current antimicrobial therapy including Zosyn with vancomycin. ID has been consulted as well as Pulmonary Medicine. Please refer to the details of the history and physical that has been dictated by the BABYSITTER in the chart. I have discussed the plan with her. cc: Dae Bauman MD
[2019-06-18] MEDS: LATUDA PO SCH (22:42)
[2019-06-18] MEDS: DESYREL PO SCH (22:43)
[2019-06-18] MEDS: TOPROL XL PO SCH (22:43)
[2019-06-18] MEDS: SENOKOT PO SCH (22:43)
[2019-06-18] MEDS: EFFEXOR XR PO SCH (22:43)
[2019-06-18] MEDS: BUSPAR PO SCH (22:44)
[2019-06-18] MEDS: KEPPRA PO SCH (22:45)
[2019-06-18] MEDS: KLONOPIN PO SCH (22:45)
[2019-06-19] MEDS: DUONEB (A & A) INH SCH ×3 (03:51→10:48)
[2019-06-19 04:59] LABS: BASO# 0.01 X1000 (0.0-0.2); BASO% 0.1 % (0.0-0.8); HEMATOCRIT 43.3 % (37.0-47.0); HEMOGLOBIN 14.2 g/dL (12.0-16.0); IMM GRAN# 0.04 X1000 (0.0-0.04); IMM GRAN% 0.4 % (0.0-0.5); LYMPH# 0.75 X1000 (1.2-3.4); LYMPH% 6.7 % (20.5-51.1); MCH 29.2 PG (27-31); MCHC 32.8 g/dL (33-37); MCV 89.1 FL (81-99); MONO# 0.69 X1000 (0.11-0.59); MONO% 6.1 % (1.7-9.3); MPV 10.2 FL (7.4-10.4); NEUT# 9.74 X1000 (1.4-6.5); NEUT% 86.7 % (42.2-75.2); PLT 203 X1000 (130-400); RBC 4.86 XMIL (4.2-5.4); RDW 14.6 % (11.5-14.5); WBC 11.23 X1000 (4.8-10.8)
[2019-06-19 05:26] LABS: AGAP 9; BUN 13 mg/dL (8-22); CALCIUM 8.8 mg/dL (8.8-10.2); CHLORIDE 95 mmol/L (98-107); COSMO 270; CREATININE 0.5 mg/dL (0.5-0.9); ESTIMATED GFR > 60; GLUCOSE 131 mg/dL (70-104); SODIUM 134 mmol/L (136-145); TCO2 30 mmol/L (25-35)
[2019-06-19] MEDS: PERCOCET-10 PO PRN ×3 (05:44→20:19)
[2019-06-19] MEDS: ZOSYN 3.375 GM in NS 50 ML IV SCH (05:45)
[2019-06-19 07:19] LABS: LYMPHS 2 % (21-51); MONO 2 % (1-9); SEGS 96 % (42-75)
[2019-06-19] MEDS: MAXIPIME 2 GM/NS 2 GM/100 ML IVPB IV SCH ×3 (07:42→23:16)
[2019-06-19] MEDS: BUSPAR PO SCH ×2 (08:35→20:09)
[2019-06-19] MEDS: TOPROL XL PO SCH ×2 (08:36→20:12)
[2019-06-19] MEDS: KEPPRA PO SCH ×2 (08:37→20:12)
[2019-06-19] MEDS: EFFEXOR XR PO SCH ×2 (08:37→20:10)
[2019-06-19] MEDS: ASPIRIN PO SCH (08:37)
[2019-06-19] MEDS: PEPCID PO SCH (08:37)
[2019-06-19] MEDS: NEURONTIN PO SCH ×4 (08:39→20:11)
[2019-06-19] MEDS: LIORESAL PO SCH ×4 (08:40→20:13)
[2019-06-19] MEDS: SENOKOT PO SCH ×2 (08:41→20:11)
[2019-06-19] MEDS ORDERED: DUONEB (A & A) INH SCH (11:30)
[2019-06-19] MEDS: FLAGYL 500 MG/NS 500 MG/100 ML IVPB IV SCH ×3 (12:05→23:16)
[2019-06-19] MEDS: CARDIZEM PO SCH ×3 (12:06→20:11)
[2019-06-19] MEDS ORDERED: ULTRAM PO PRN (12:11)
[2019-06-19] MEDS ORDERED: NS 1,000 ML IV ONE (12:18)
--- NOTE | 2019-06-19 12:41 | INFECTIOUS DISEASE PROGRESS NO ---
DATE: 06/19/2019 CONCLUSION: Patient was admitted the hospital with a severe bilateral pneumonia. RECOMMENDATIONS: I agree with treating the patient with vancomycin and cefepime. I have discontinued Zosyn because 1, the patient is allergic to it, although she has tolerated the 1st few doses and also because the incidence of renal toxicity is higher when vancomycin is combined with Zosyn rather than some other antibiotic. Some of the side effects of the antibiotics, including rash, diarrhea, renal toxicity, ototoxicity have been explained to the patient who agrees with treatment. I ordered a sputum gram stain and culture. DISCUSSION: The patient is wearing a BiPAP mask and most of the information I have obtained has been from the computer. The patient came in and she was complaining of fever, chills, body ache and a productive green sputum cough over the past 4 days that has progressively worsened. The patient's CBC shows a white count that initially was 16,370 to 11,230 this morning with a hemoglobin of 14.2 and a platelet count of 203,000. Blood gases show a pH of 7.35, a PO2 of 62, and a pCO2 of 48. Creatinine is 0.5. GFR is greater than 60. Blood cultures are pending. The vaginal culture for B strep also is pending. The patient had a pulmonary angiogram which showed right greater than left side with severe bilateral pneumonia. Also, there was seen mediastinal and hilar adenopathy thought to be reactive in nature. IgG is 751 and IgA is 307 both of which are normal. REVIEW OF SYSTEMS: The patient as mentioned above, fever, chills, body ache, and a productive cough. She also is dyspneic. She denied having chest pain, abdominal pain, constipation, diarrhea, burning or hurting with urination. PAST MEDICAL HISTORY: Positive for a stroke secondary to a VSD. The patient has a resulting left leg plegia and left arm paralysis. The patient also has spina bifida, asthma, and seizures. PAST SURGICAL HISTORY: Positive for cholecystectomy, , D and C and a VSD repair. FAMILY HISTORY: Said to be noncontributory. SOCIAL HISTORY: The patient lives with family. She smokes cigarettes. She denies drinking alcoholic beverages or using illicit drugs. ALLERGIES: Patient is allergic to amoxicillin manifested by a rash. She currently is getting Zosyn and has not had any problem and specifically no rash. HOME MEDICATIONS: Include Adderall, aspirin, baclofen, BuSpar, clonazepam, gabapentin, Keppra, Latuda, metoprolol, oxycodone, Zantac, senna, Nucynta, trazodone and venlafaxine. PHYSICAL EXAMINATION: Vital Signs: Temperature is 98.2 degrees, pulse 85, respirations 17, blood pressure 132/79. Patient is 5 feet 4 inches tall, weighs 190 pounds. General: This is an obese, young female. She did not seem to be in any acute distress with her BiPAP mask on. Head/eyes/ears/nose and throat: As mentioned above the patient has a BiPAP mask on. She was able to see near objects and hear my spoken words. I did not see any drainage from her ears or nose. Neck: No meningismus. Lungs: Clear to auscultation. Cardiovascular: Heart rate is regular. Abdomen: Soft and nontender. Neurologic: The patient is alert. She has a left leg plegia and a left arm paralysis. There is no tremor. Integument: No rash noted. Thank you for the consult. cc: Drew Ellis MD [facility]
[2019-06-19] MEDS: VANCOMYCIN 1,700 MG in NS 250 ML IV SCH (13:18)
--- NOTE | 2019-06-19 14:58 | PROGRESS NOTE ---
DATE: 06/19/2019 SUBJECTIVE: The patient has no major complaints but she does seem to be working harder to breathe. OBJECTIVE: Blood pressure is 155/86, heart rate 123, respiratory rate 30, temperature was 97.7 degrees.Cardiovascular: Regular rate and rhythm. Pulmonary: Bilateral breath sounds, rales throughout, diminished air movement throughout. GI: Soft, nontender, nondistended. Bowel sounds are positive. LABS: White count 11, hemoglobin and hematocrit 14, 43, platelets 203,000, sodium 134. PROBLEM LIST: Acute hypoxic respiratory failure presumably due to pneumonia. She is off BiPAP but she still has a significant O2 requirement and progressively is getting worse I would say worse but she is not improving quite as well as I would anticipate. This etiology of her lung disease is unclear. Most of her disease is in her right lobes. She does have some disease otherwise she does have some bronchiectasis which would suggest more likely that there is a chronic component. Now her pneumonia previously has been in her left upper and lower lobes. She has been intubated before but again this time it seems like most of her disease is in the right lobes which would argue against something more at least in my mind systemic aspiration, reflux, these seem to be more likely so I will add metronidazole to her cefepime and vancomycin and we will follow. Awaiting pulmonary and ID recommendations although I think Dr. Ellis has already seen the patient and put her on vancomycin and cefepime. We will rule out other etiologies including inflammatory disease. At this point, her respiratory status is not great but we will continue to monitor and is possible she deteriorates she may require intubation. Pulmonary reevaluate her today per Dr. Todd. cc: Medardo Noel MD
[2019-06-19] MEDS: XOPENEX NEB INH SCH ×2 (15:23→20:21)
--- NOTE | 2019-06-19 15:45 | PROVIDER PROGRESS NOTE ---
Progress Note Patient has been seen and examined. A full dictation to follow.
[2019-06-19] MEDS: PATIENT'S OWN MED PO SCH (16:19)
[2019-06-19] MEDS: KLONOPIN PO SCH (20:11)
[2019-06-19] MEDS: DESYREL PO SCH (20:13)
[2019-06-19] MEDS: LATUDA PO SCH (20:35)
[2019-06-19 20:59] LABS: URINE SOURCE CATH
[2019-06-19 21:04] LABS: BILIRUBIN URINE NEGATIVE (NEGATIVE); BLOOD URINE LARGE (NEGATIVE); COLOR YELLOW; GLUCOSE URINE NEGATIVE (NEGATIVE); KETONE URINE TRACE mg/dL (NEGATIVE); LEUKOCYTES URINE NEGATIVE (NEGATIVE); NITRITE URINE NEGATIVE (NEGATIVE); PH URINE 6.5; PROTEIN URINE 100 mg/dL (NEGATIVE); SP GRAVITY URINE 1.042; TURBIDITY URINE HAZY (CLEAR); UROBILINOGEN URINE 3 mg/dL (NORMAL)
[2019-06-19 21:05] LABS: UR EPITHELIAL CELLS <10 /HPF (<10); URINE BACTERIA NEGATIVE /HPF; URINE RBC TNTC /HPF (<10)
[2019-06-20] MEDS: DUONEB (A & A) INH PRN (02:57)
[2019-06-20] MEDS: PERCOCET-10 PO PRN ×4 (04:35→20:00)
--- NOTE | 2019-06-20 04:49 | PULMONOLOGY CONSULTATION ---
DATE: 06/19/2019 REQUESTING PROVIDER: LALY Hollingsworth. REASON FOR CONSULTATION: Bilateral pneumonia, acute respiratory failure. HISTORY OF PRESENT ILLNESS: This is a 28-year-old female with a medical history of ongoing tobacco use, spinal bifida with chronic pain syndrome, ventricular septal defect, cerebrovascular accident, seizure and asthma. She presented to the ER yesterday morning with worsening shortness of breath, wheezing, cough, fever, chills, right-sided chest pain with cough, decreased urine output and dark urine for 2 days. Upon arrival to the ER, the patient was found in severe desaturation with oxygen saturation 50% on nasal cannula at 2 L. Initial workup in the ER revealed acute hypoxic respiratory failure, bilateral multilobar pneumonia with right greater than left and sepsis syndrome secondary to pneumonia. CT angiogram pulmonary arteries, rule out pulmonary embolism, showing severe bilateral multilobar pneumonia, right greater than left, and reactive mediastinal and hilar lymphadenopathy. She has been on antimicrobial therapy, including Zosyn and vancomycin since admission. The patient currently is sitting in bed with breathing treatment going on. She is on nasal cannula at 3 L with oxygen saturation in the low 90s. She is tachycardiac and tachypneic. She reports productive cough with yellow-greenish sputum for last several days, fever for 2 days up to 102, and acute right lower back pain secondary to cough. She states everyone at home has been sick recently, but no flu identified. She also has shortness of breath even at rest before hospital admission. PAST MEDICAL HISTORY: 1. Severe Staph pneumonia requiring intubation, prolonged ventilation and ultimately transferred to [facility] in May and June 2016. During that hospitalization, she also developed a right middle cerebral arterial infarction. Later at [facility], she was diagnosed with ventricular septal defect and underwent percutaneous closure of the defect at [facility]. 2. Previous Staphylococcus skin infections requiring incision and drainage. 3. History of right middle cerebral arterial infarction with residual left hemiplegia. 4. History of spinal bifida with chronic pain syndrome, status post surgical repair. 5. History of seizure disorder. 6. History of asthma. Patient does not remember her last asthma attack. 7. Depression. 8. Tobacco use. PAST SURGICAL HISTORY: 1. Cholecystectomy. 2. Cyst removal on right hand. 3. Percutaneous ventricular septal defect repair. 4. section. 5. Tracheostomy placement. SOCIAL HISTORY: The patient lives at home with her family. She is a daily smoker, she used to smoke half a pack per day and has cut way back recently with only 1 to 2 cigarettes daily. She has been smoking over 15 years. She has no history of alcohol or illicit drug use. FAMILY HISTORY: Positive for diabetes, hypertension, stroke, Alzheimer's disease and ventricular septal defect. ALLERGIES: Amoxicillin. REVIEW OF SYSTEMS: A 10-point review of systems was conducted and the pertinent's listed within the HPI, otherwise noncontributory. PHYSICAL EXAMINATION: Vital Signs: Temperature 97.7 degrees, blood pressure 133/93, pulse 107, respiratory rate 33, oxygen saturation 96% on nasal cannula at 3 L. General: Obese, sitting in bed with breathing treatment on, in moderate acute respiratory and cardiac stress. HEENT: Atraumatic, normocephalic. Trachea midline. Mucosa pink and moist. Respiratory: Tachypneic, increased work of breathing, but no accessory muscle use noted. Auscultation revealed coarse breathing sounds throughout all lung rod. Diminished breathing sounds bilaterally. Inspiratory and expiratory wheezing bilaterally and diffuse crackles bilaterally. Cardiovascular: Tachycardia. S1, S2 appreciated. Gastrointestinal: Soft, nontender, nondistended. Normoactive bowel sounds in all 4 quadrants. Extremities: Left lower extremity cool to touch with diminished dorsalis pedis, right lower extremity warm to touch with 2+ dorsalis pedis. No cyanosis, no clubbing. No pedal edema. Neurologic: Alert, oriented x3. Speech fluent. Follows commands. In moderate acute cardiac and pulmonary distress. LAB DATA: White blood cell 11.23, hemoglobin 14.2, hematocrit 43.3, platelet 203,000. Sodium 134, potassium 4.0, chloride 95, carbon dioxide 30, BUN 14, creatinine 0.5. Glucose 131. C- reactive protein 299.86. IMAGING DATA: CT angiogram pulmonary arteries on 06/18/2019 revealed severe bilateral multilobar pneumonia, right greater than left, and reactive mediastinal and hilar lymphadenopathy, but no pulmonary embolism. ASSESSMENT: This is a 28-year-old, female with a medical history of ongoing tobacco use, history of severe Staphylococcus pneumoniae requiring intubation, prolonged ventilation and ultimately transferred to [facility] in May and June 2016, history of spinal bifida with chronic pain syndrome, history of ventricular septal defect, right middle cerebral arterial infarct, seizure disorder, asthma, depression. She has been admitted to ICU since 06/18/2019 with acute hypoxemic respiratory failure, severe bilateral multilobar pneumonia and sepsis syndrome secondary to pneumonia. 1. Acute hypoxemic respiratory failure. 2. Severe bilateral multilobar pneumonia, right greater than left, with reactive mediastinal and hilar lymphadenopathy. 3. Sepsis syndrome secondary to pneumonia. 4. Ongoing tobacco use. PLAN: 1. Continue supplemental oxygen with BiPAP as needed, titrate oxygen concentration to patient's needs per clinical protocol with close monitoring. 2. Antibiotics, including cefepime, Flagyl and vancomycin per Dr. Ellis. Continue bronchodilators q.4 hours and q.2 hours as needed. 3. Start Mucomyst. 4. Follow up with group B strep culture, procalcitonin, sputum culture, blood culture, ABG, CBC, BMP and chest x-ray. 5. Continue GI and DVT prophylaxis. 6. Further recommendations pending hospital course. Thank you for the courtesy of this consult. Dr. Todd did the examination, evaluation and management orders. LALY did the dictation only for Dr. Todd, according to his direction. TOTAL EVALUATION TIME IN MINUTES: 36 minutes. Dictated by LALY Solis for Dean Todd MD cc: LALY Solis MD [facility]
[2019-06-20 05:04] LABS: EOS# 0.01 X1000 (0.0-0.7); EOS% 0.1 % (0.0-10.0); HEMATOCRIT 41.2 % (37.0-47.0); HEMOGLOBIN 13.1 g/dL (12.0-16.0); IMM GRAN# 0.04 X1000 (0.0-0.04); IMM GRAN% 0.4 % (0.0-0.5); LYMPH# 0.82 X1000 (1.2-3.4); LYMPH% 9.1 % (20.5-51.1); MCH 29.2 PG (27-31); MCHC 31.8 g/dL (33-37); MCV 91.8 FL (81-99); MONO# 0.76 X1000 (0.11-0.59); MONO% 8.4 % (1.7-9.3); MPV 10.1 FL (7.4-10.4); NEUT# 7.39 X1000 (1.4-6.5); PLT 215 X1000 (130-400); RBC 4.49 XMIL (4.2-5.4); WBC 9.02 X1000 (4.8-10.8)
[2019-06-20 05:06] LABS: ALLEN TEST YES; BE 6.5 mmoll (-3.0-3.0); BLOOD TYPE ARTERIAL; HCO3-(ACT) 29.9 mmoll (20.0-26.0); METHB 1.5 % (0.0-1.5); O2(CT) 20.2 mL/dL (15.0-23.0); O2HB 94.4 % (95.0-99.0); PO2(98.6) 81 mmHg (60-100); SAMPLE BLOOD; SAO2 97.3 % (95.0-100.0); THB 15.2 g/dL (11.5-17.4); pH(98.6) 7.38 (7.35-7.45)
[2019-06-20 05:11] LABS: PCO2(98.6) 57 mmHg (35-45)
[2019-06-20 05:12] LABS: MODALITY BI PAP
[2019-06-20 05:20] LABS: AGAP 10; BUN 12 mg/dL (8-22); CALCIUM 8.6 mg/dL (8.8-10.2); CHLORIDE 99 mmol/L (98-107); COSMO 277; CREATININE 0.4 mg/dL (0.5-0.9); ESTIMATED GFR > 60; GLUCOSE 95 mg/dL (70-104); POTASSIUM 3.7 mmol/L (3.5-5.1); SODIUM 139 mmol/L (136-145); TCO2 30 mmol/L (25-35)
[2019-06-20] MEDS: FLAGYL 500 MG/NS 500 MG/100 ML IVPB IV SCH (05:56)
[2019-06-20] MEDS: MAXIPIME 2 GM/NS 2 GM/100 ML IVPB IV SCH ×4 (05:56→23:07)
[2019-06-20] MEDS: CARDIZEM PO SCH ×4 (05:56→20:09)
--- NOTE | 2019-06-20 07:10 | Diag Imaging Result Doc PS360 ---
EXAM: CHEST-1 VIEW 06/20/2019 HISTORY: SOB TECHNIQUE: AP portable at 0505 COMMENT: There is slightly worsened alveolar opacity in the right lower lobe obscuring the hemidiaphragm. There is opacity in the left costophrenic angle region which is also slightly worse than on 06/18/2019. IMPRESSION: Pneumonia plus minus pulmonary edema, slightly worse. Electronically signed by Thuan Eli 06/20/2019 7:08 AM
[2019-06-20] MEDS: VANCOMYCIN 1,700 MG in NS 250 ML IV SCH (08:05)
[2019-06-20] MEDS: XOPENEX NEB INH SCH ×3 (09:17→22:20)
[2019-06-20] MEDS: PEPCID PO SCH (10:03)
[2019-06-20] MEDS: PATIENT'S OWN MED PO SCH ×2 (10:03→18:28)
[2019-06-20] MEDS: KEPPRA PO SCH ×2 (10:03→20:12)
[2019-06-20] MEDS: BUSPAR PO SCH ×2 (10:03→20:10)
[2019-06-20] MEDS: TOPROL XL PO SCH ×2 (10:03→20:13)
[2019-06-20] MEDS: ASPIRIN PO SCH (10:03)
[2019-06-20] MEDS: SENOKOT PO SCH ×2 (10:03→20:09)
[2019-06-20] MEDS: LIORESAL PO SCH ×4 (10:04→20:09)
[2019-06-20] MEDS: EFFEXOR XR PO SCH ×2 (10:04→20:00)
[2019-06-20] MEDS: NEURONTIN PO SCH ×4 (10:04→20:13)
--- NOTE | 2019-06-20 13:05 | INFECTIOUS DISEASE PROGRESS NO ---
DATE: 06/20/2019 PRESENT ILLNESS: The patient has a bilateral pneumonia. It appears to me to be worse on the right side than the left. MEDICATIONS: Currently the patient is on a combination of cefepime, Flagyl and vancomycin. PHYSICAL EXAMINATION: Vital Signs: Temperature is 98 degrees, pulse 104, respirations 16, blood pressure 105/53. General: This is a somewhat ill-appearing young female. She is in no acute distress. Head/eyes/ears/nose/throat: She can hear my spoken words and see near objects. I did not see any white coating of her tongue. Neck: No pain with movement. Lungs: Bilateral rales. Cardiovascular: Heart rate is regular and rapid. Abdomen: Soft and nontender. Neurologic: The patient is alert. She has a left arm paralysis and a left leg paresis. There is no tremor. LAB AND X-RAY: Chest x-ray shows bilateral pneumonia/pulmonary edema. It seems to me that it is worse on the right side than the left. The patient's IgG is 751 and IgA is 307. Both of these values are within normal limits. CBC shows a white count of 9020, hemoglobin 13.1 and platelet count 215,000. Creatinine is 0.4, GFR is greater than 60. Blood gases showed a pH of 7.38, a PO2 of 81, a pCO2 of 57. ASSESSMENT AND PLAN: Patient has pneumonia. Even though the x-ray may look a little bit worse, the patient is not febrile and her white count is normal and she says that she is feeling better. The change in the x-ray may reflect that the x-ray lags behind how the patient is doing clinically. I have discontinued Flagyl. COMORBIDITIES: The patient has had a stroke secondary to a VSD. She has spina bifida, asthma, and seizures. cc: Drew Ellis MD
--- NOTE | 2019-06-20 14:10 | PROVIDER PROGRESS NOTE ---
Progress Note Dr. Todd Progress Note/Pulmonary and or critical care Subjective: The patient is sitting in bed on NC 6L with SaO2 in low 90s. She is in mild tachycardia and tachypnea with mild increased work of breathing. She was on BiPAP overnight with decreased FiO2 of 70%. She states she is feeling some better. She reports she had a swallow evaluation done at an earlier time and she was told that she is ok. She reports no choking or aspiration during eating or drinking. She does have residue left hemiplegia secondary to stroke in 2017. No family at the bedside. Input was appreciated from Dr. Jones and other teams on the case. Objective: Vital Signs: T 97.2 (no fever in last 24 hours), NM 99, RR 24, BP 84/59 and SaO2 92% on NC 6L. I/O +1585 ml Physical Examination: General: Lying in bed with mild acute distress noted. HEENT: Normocephalic. Trachea midline. Mucosa pink and moist Chest: Mild tachypnea with mildly increased work of breathing, but no accessory muscle use noted. Symmetrical excursion. Diminished and coarse breathing sounds bilaterally with mild inspiratory crackles bilaterally, but no wheezing. CVS: Mild tachycardia. Regular rate and rhythm with S1 and S2 appreciated. Abdomen: Soft. Protuberant. Nontender. Bowel sounds present in all 4 quadrants. Extremities: No pedal edema. LLE cold to touch with diminished dorsalis pedis. No cyanosis. No clubbing. Neuro: A/O x3. Speech fluent. Follow commands. Left side hemiplegia noted. Labs and Radiology: Laboratory Results 06/18/19 06/18/19 06/19/19 11:52 18:30 20:50 WBC RBC Hgb Hct MCV MCH MCHC RDW Std Deviation Plt Count MPV Immature Gran % (Auto) Neut % (Auto) Lymph % (Auto) [place] % (Auto) Eos % (Auto) Baso % (Auto) Immature Gran # (Auto) Neut # (Auto) Lymph # (Auto) Scre[place] # (Auto) Eos # (Auto) Baso # (Auto) Specimen Type Sample Site pH pCO2 pO2 HCO3 Base Excess Oxyhemoglobin ABG O2 Sat (Calculated) ABG O2 Saturation ABG Carboxyhemoglobin ABG Methemoglobin Kvng Test A-a O2 Difference Total Hemoglobin Lactate Blood Gas Modality Vent Mode FiO2 % Inspiratory BiPAP Expiratory BiPAP Sodium Potassium Chloride Carbon Dioxide Anion Gap BUN Creatinine Estimated GFR/1.73 m2 BUN/Creatinine Ratio Glucose Calculated Osmolality Calcium Procalcitonin SEE COMMENTS Urine Source CATH Urine Color YELLOW Urine Turbidity HAZY Urine pH 6.5 Ur Specific Ack[place] 1.042 Urine Protein 100 A Ur Glucose (Stick) NEGATIVE Ur Ketones (Stick) TRACE A Urine Blood LARGE A Urine Nitrite NEGATIVE Urine Bilirubin NEGATIVE Urobilinogen Dipstick 3 A Urine Leukocytes NEGATIVE Urine WBC (Auto) 10-20 A Urine RBC (Auto) TNTC A U Epithel Cells (Auto) <10 Urine Bacteria (Auto) NEGATIVE Urine Legionella Ag SEE COMMENTS 06/20/19 06/20/19 06/20/19 04:30 04:30 04:55 WBC 9.02 RBC 4.49 Hgb 13.1 Hct 41.2 MCV 91.8 MCH 29.2 MCHC 31.8 L RDW Std Deviation 15.0 H Plt Count 215 MPV 10.1 Immature Gran % (Auto) 0.4 Neut % (Auto) 82.0 H Lymph % (Auto) 9.1 L Scre[place] % (Auto) 8.4 Eos % (Auto) 0.1 Baso % (Auto) 0.0 Immature Gran # (Auto) 0.04 Neut # (Auto) 7.39 H Lymph # (Auto) 0.82 L Screven # (Auto) 0.76 H Eos # (Auto) 0.01 Baso # (Auto) 0.00 Specimen Type ARTERIAL Sample Site R RADIAL pH 7.38 pCO2 57 H* pO2 81 HCO3 29.9 H Base Excess 6.5 H Oxyhemoglobin 94.4 L ABG O2 Sat (Calculated) 20.2 ABG O2 Saturation 97.3 ABG Carboxyhemoglobin 1.50 ABG Methemoglobin 1.5 Kvng Test YES A-a O2 Difference 347.0 Total Hemoglobin 15.2 Lactate 1.00 Blood Gas Modality BI PAP Vent Mode BIPAP FiO2 % 70.0 Inspiratory BiPAP 12.0 Expiratory BiPAP 6.0 Sodium 139 Potassium 3.7 Chloride 99 Carbon Dioxide 30 Anion Gap 10 BUN 12 Creatinine 0.4 L Estimated GFR/1.73 m2 > 60 BUN/Creatinine Ratio 30 Glucose 95 Calculated Osmolality 277 Calcium 8.6 L Procalcitonin Urine Source Urine Color Urine Turbidity Urine pH Ur Specific Ack[place] Urine Protein Ur Glucose (Stick) Ur Ketones (Stick) Urine Blood Urine Nitrite Urine Bilirubin Urobilinogen Dipstick Urine Leukocytes Urine WBC (Auto) Urine RBC (Auto) U Epithel Cells (Auto) Urine Bacteria (Auto) Urine Legionella Ag Assessment: Acute respiratory failure, hypoxemic and hypercapnia. Severe bilateral multilobar pneumonia right greater than left with reactive mediastinal and hilar lymphadenopathy. CXR today reveals slightly worse pneumonia +/- pulmonary edema. Ongoing tobacco use. 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 Aware. Possible septic shock. Mild. Prognosis is guarded. Plan: Continue current treatment and supportive care per admitting and other teams on the case. Supplemental oxygen and BiPAP as needed. Continue titrating oxygen per clinical protocol. Antibiotics, including Cefepime, Flagyl and Vancomycin. Bronchodilators. Mucomyst. Appropriate DVT and GI prophylaxis Evaluation time in minutes: 34 minutes.
[2019-06-20] MEDS: LASIX IV SCH (15:34)
--- NOTE | 2019-06-20 18:41 | PROGRESS NOTE ---
DATE: 06/20/2019 SUBJECTIVE: She is breathing better today, less work of breathing. OBJECTIVE: Blood pressure 125/70, heart rate 100, respiratory rate 25, temperature 97.2 degrees, 92% on 6 L.Cardiovascular: Regular rate and rhythm. Pulmonary: Bilateral breath sounds, clear to auscultation. GI: Soft, nontender, nondistended. Bowel sounds are positive. LABORATORY DATA: White count 9, hemoglobin and hematocrit 13 and 41, platelets 215,000. PH 7.38, pCO2 is 57, PaO2 is 81. Basic was normal. ASSESSMENT AND PLAN: 1. Acute hypoxic respiratory failure due to pneumonia. Still not quite clear what the etiology is. She has recurrent pneumonia. I suspect she has some sort of dysphagia, that maybe she has had a stroke before. She has had a tracheostomy before. Her speech is somewhat compromised from her stroke. I am just suspicious that is underlying, despite the fact that she denies any dysphagia, but we will get a Speech Therapy evaluation and modified if required. 2. Pneumonia. We will continue empiric antibiotics. Clinically she is improving. We were able to wean oxygen, but she is still on fairly high-flow oxygen. 3. History of stroke, spina bifida, seizures. We are going to continue her medications and monitor. I am going to continue to monitor her in the unit just because of her multiple issues. cc: Medardo Noel MD
[2019-06-20] MEDS: DESYREL PO SCH (20:09)
[2019-06-20] MEDS: KLONOPIN PO SCH (20:11)
[2019-06-20] MEDS: LATUDA PO SCH (20:12)
[2019-06-21] MEDS: VANCOMYCIN 1,700 MG in NS 250 ML IV SCH (01:54)
[2019-06-21] MEDS: PERCOCET-10 PO PRN ×3 (04:11→17:10)
[2019-06-21 05:07] LABS: BASO# 0.01 X1000 (0.0-0.2); BASO% 0.1 % (0.0-0.8); EOS# 0.22 X1000 (0.0-0.7); EOS% 2.3 % (0.0-10.0); HEMOGLOBIN 13.8 g/dL (12.0-16.0); IMM GRAN# 0.06 X1000 (0.0-0.04); IMM GRAN% 0.6 % (0.0-0.5); LYMPH# 1.03 X1000 (1.2-3.4); LYMPH% 10.8 % (20.5-51.1); MCH 28.6 PG (27-31); MCHC 31.4 g/dL (33-37); MCV 91.3 FL (81-99); MONO# 0.67 X1000 (0.11-0.59); MPV 9.9 FL (7.4-10.4); NEUT# 7.58 X1000 (1.4-6.5); NEUT% 79.2 % (42.2-75.2); PLT 247 X1000 (130-400); RBC 4.82 XMIL (4.2-5.4); WBC 9.57 X1000 (4.8-10.8)
[2019-06-21 05:26] LABS: ALLEN TEST YES; BE 10.9 mmoll (-3.0-3.0); BLOOD TYPE ARTERIAL; HCO3-(ACT) 33.2 mmoll (20.0-26.0); O2(CT) 19.7 mL/dL (15.0-23.0); SAMPLE BLOOD; SAO2 91.8 % (95.0-100.0); SRATE 4 BPM; THB 15.8 g/dL (11.5-17.4); pH(98.6) 7.46 (7.35-7.45)
[2019-06-21 05:27] LABS: AGAP 13; BUN 9 mg/dL (8-22); CALCIUM 8.7 mg/dL (8.8-10.2); CHLORIDE 92 mmol/L (98-107); COSMO 272; CREATININE 0.5 mg/dL (0.5-0.9); ESTIMATED GFR > 60; GLUCOSE 95 mg/dL (70-104); POTASSIUM 3.4 mmol/L (3.5-5.1); SODIUM 137 mmol/L (136-145); TCO2 32 mmol/L (25-35)
[2019-06-21 05:29] LABS: MODALITY BI PAP
[2019-06-21 05:49] LABS: PCO2(98.6) 52 mmHg (35-45)
[2019-06-21 05:50] LABS: PO2(98.6) 50 mmHg (60-100)
[2019-06-21] MEDS: MAXIPIME 2 GM/NS 2 GM/100 ML IVPB IV SCH ×3 (06:07→22:48)
[2019-06-21] MEDS: CARDIZEM PO SCH ×3 (06:07→20:13)
--- NOTE | 2019-06-21 06:51 | Diag Imaging Result Doc PS360 ---
CHEST-1 VIEW - 06/21/2019 INDICATION: SOB COMPARISON: 06/20/2019 FINDINGS: Stable dense infiltrate throughout the right lung diffusely. Stable patchy infiltrate in the left lung base. Heart size remains normal. No large pleural effusion. IMPRESSION: No change from prior. Electronically signed by Alvaro Tse 06/21/2019 6:48 AM
[2019-06-21] MEDS: PATIENT'S OWN MED PO SCH ×2 (09:23→17:05)
[2019-06-21] MEDS: TOPROL XL PO SCH ×2 (09:23→20:14)
[2019-06-21] MEDS: SENOKOT PO SCH ×2 (09:23→20:14)
[2019-06-21] MEDS: LASIX IV SCH (09:23)
[2019-06-21] MEDS: ASPIRIN PO SCH (09:23)
[2019-06-21] MEDS: BUSPAR PO SCH ×2 (09:23→20:13)
[2019-06-21] MEDS: KEPPRA PO SCH ×2 (09:23→20:14)
[2019-06-21] MEDS: EFFEXOR XR PO SCH ×2 (09:23→20:13)
[2019-06-21] MEDS: NEURONTIN PO SCH ×4 (09:23→20:14)
[2019-06-21] MEDS: PEPCID PO SCH (09:23)
[2019-06-21] MEDS: LIORESAL PO SCH (09:23)
[2019-06-21] MEDS: XOPENEX NEB INH SCH ×3 (09:32→21:50)
[2019-06-21] MEDS: DUONEB (A & A) INH PRN (11:21)
[2019-06-21] MEDS: ROBITUSSIN-AC PO PRN (14:01)
[2019-06-21] MEDS: MUCOMYST 20% INH SCH ×2 (15:15→21:50)
--- NOTE | 2019-06-21 16:17 | PROVIDER PROGRESS NOTE ---
Progress Note Dr. Todd Progress Note/Pulmonary and or critical care Subjective: The patient is sitting in bed on VM 50% with SaO2 in low 90s. She is in mild tachycardia and tachypnea with mild increased work of breathing. She states she is feeling better. She still complains of some pleurisy. No family at the bedside. Input was appreciated from Dr. Noel and other teams on the case. Objective: Vital Signs: T 98.2 (no fever in last 24 hours), SC 116, RR 27, BP 138/80 and SaO2 90% on VM 50%. I/O +1075 ml Physical Examination: General: Lying in bed with mild acute distress noted. HEENT: Normocephalic. Trachea midline. Mucosa pink and moist Chest: Mild tachypnea with mildly increased work of breathing, but no accessory muscle use noted. Symmetrical excursion. Diminished breathing sounds on the left side of the lung with coarse breathing sounds on the right side of the lung. CVS: Mild tachycardia. Regular rate and rhythm with S1 and S2 appreciated. Abdomen: Soft. Protuberant. Nontender. Bowel sounds present in all 4 quadrants. Extremities: No pedal edema. LLE cold to touch with diminished dorsalis pedis. No cyanosis. No clubbing. Neuro: A/O x3. Speech fluent. Follow commands. Left side hemiplegia noted. Labs and Radiology: Laboratory Results 06/21/19 06/21/19 06/21/19 04:51 04:51 04:51 WBC 9.57 RBC 4.82 Hgb 13.8 Hct 44.0 MCV 91.3 MCH 28.6 MCHC 31.4 L RDW Std Deviation 15.0 H Plt Count 247 MPV 9.9 Immature Gran % (Auto) 0.6 H Neut % (Auto) 79.2 H Lymph % (Auto) 10.8 L [place] % (Auto) 7.0 Eos % (Auto) 2.3 Baso % (Auto) 0.1 Immature Gran # (Auto) 0.06 H Neut # (Auto) 7.58 H Lymph # (Auto) 1.03 L [place] # (Auto) 0.67 H Eos # (Auto) 0.22 Baso # (Auto) 0.01 ESR Specimen Type Sample Site pH pCO2 pO2 HCO3 Base Excess Oxyhemoglobin ABG O2 Sat (Calculated) ABG O2 Saturation ABG Carboxyhemoglobin ABG Methemoglobin Kvng Test A-a O2 Difference Total Hemoglobin Lactate Blood Gas Modality Spontaneous Rate FiO2 % Inspiratory BiPAP Expiratory BiPAP Sodium 137 Potassium 3.4 L Chloride 92 L Carbon Dioxide 32 Anion Gap 13 BUN 9 Creatinine 0.5 Estimated GFR/1.73 m2 > 60 BUN/Creatinine Ratio 18 Glucose 95 Calculated Osmolality 272 Calcium 8.7 L C-Reactive Prot, Quant 258.06 H 06/21/19 06/21/19 05:16 08:49 WBC RBC Hgb Hct MCV MCH MCHC RDW Std Deviation Plt Count MPV Immature Gran % (Auto) Neut % (Auto) Lymph % (Auto) [place] % (Auto) Eos % (Auto) Baso % (Auto) Immature Gran # (Auto) Neut # (Auto) Lymph # (Auto) [place] # (Auto) Eos # (Auto) Baso # (Auto) ESR 98 H Specimen Type ARTERIAL Sample Site R RADIAL pH 7.46 H pCO2 52 H* pO2 50 L HCO3 33.2 H Base Excess 10.9 H Oxyhemoglobin 89.0 L* ABG O2 Sat (Calculated) 19.7 ABG O2 Saturation 91.8 L ABG Carboxyhemoglobin 2.10 ABG Methemoglobin 1.0 Kvng Test YES A-a O2 Difference 170.0 Total Hemoglobin 15.8 Lactate 1.30 Blood Gas Modality BI PAP Spontaneous Rate 4 FiO2 % 40.0 Inspiratory BiPAP 12.0 Expiratory BiPAP 6.0 Sodium Potassium Chloride Carbon Dioxide Anion Gap BUN Creatinine Estimated GFR/1.73 m2 BUN/Creatinine Ratio Glucose Calculated Osmolality Calcium C-Reactive Prot, Quant Assessment: Acute respiratory failure, hypoxemic and hypercapnia. Hypoxemia worsening. Severe bilateral multilobar pneumonia right greater than left with reactive mediastinal and hilar lymphadenopathy. CXR today shows stable dense infiltrate throughout the right lung diffusely with stable patchy infiltrate in the left lung base. Ongoing tobacco use. 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 Aware. Possible septic shock. Mild. Prognosis is guarded. Plan: Continue current treatment and supportive care per admitting and other teams on the case. Supplemental oxygen and BiPAP as needed. Continue titrating oxygen per clinical protocol. Antibiotics, including Cefepime, Flagyl and Vancomycin. Bronchodilators. Mucomyst. Appropriate DVT and GI prophylaxis Evaluation time in minutes: 33 minutes.
--- NOTE | 2019-06-21 17:47 | INFECTIOUS DISEASE PROGRESS NO ---
DATE: 06/21/2019 PRESENT ILLNESS: The patient has a diffuse right lung pneumonia and also a left basilar pneumonia. MEDICATIONS: This is day 2 of treatment with a combination of cefepime and vancomycin. PHYSICAL EXAMINATION: Vital Signs: Temperature is 99 degrees, pulse 102, respirations 19, blood pressure is 110/80. General: This is an ill-appearing, young female. She told me today that she is having left-sided pleuritic chest pain. Head, eyes, ears, nose, throat: She can hear my spoken words and see near objects. She does not have any white patches in her mouth. Neck: No pain with movement. Lungs: The patient had rales in the left lung and she was clear in the right lung. Neurologic: The patient is alert. She has paralysis of her left arm and paresis of her left leg. LAB AND X-RAY: Chest x-ray shows a right lung infiltrate and a left lung basilar infiltrate. The right lung infiltrate is diffuse. The patient's CBC shows a white count of 9,570, hemoglobin 13.8, and platelet count 247,000. Blood gases show a pH of 7.46, a PO2 of 50, and a pCO2 of 52. The patient's creatinine is 0.5. GFR is greater than 60. The patient's procalcitonin is 0.2 which means that pneumonia is unlikely in this patient. However, I think she does have pneumonia, even if the procalcitonin level is low. ASSESSMENT AND PLAN: As mentioned above, I think the patient has pneumonia and my plan is to continue cefepime and vancomycin. COMORBIDITIES: The patient has had a stroke secondary to a VSD. She also has spina bifida, asthma, and seizures. cc: Drew Ellis MD
--- NOTE | 2019-06-21 18:21 | PROGRESS NOTE ---
DATE: 06/21/2019 SUBJECTIVE: Patient is complaining today of cough and left-sided chest pain, but cough is much more productive today. OBJECTIVE: Blood pressure 122/90, heart rate 108, respiratory rate 32, temperature 96.8. She is 90-91 on a 50% mask, she had been on 70 and then 40 and then now is up to 50. IMAGING: Chest x-ray is stable. PROBLEM LIST: 1. Acute hypoxic respiratory failure due to pneumonia. We will continue empiric antibiotics. I am still concerned about dysphagia, but I think Speech has cleared her, although I do not see a note from them, so we will make sure that she stabilizes. 2. Multilobar pneumonia. She is on empiric antibiotics which are as follows. She is on cefepime which will be day 2 and vancomycin which will be day 3, and we will continue to monitor. I guess we stopped the Flagyl, although I am still concerned about aspiration, but, again, we do not have clear evidence of that and we will work on pulmonary toilet. So, today clinically I would say she is a little worse. X-ray today is worse and she is requiring more oxygen. We will continue Mucomyst and allow Tessalon and see how she does. cc: Medardo Noel MD
[2019-06-21] MEDS: KLONOPIN PO SCH (20:13)
[2019-06-21] MEDS: LATUDA PO SCH (20:13)
[2019-06-21] MEDS: LIORESAL PO PRN (20:14)
[2019-06-21] MEDS: TESSALON PO PRN (20:15)
[2019-06-21] MEDS: DESYREL PO SCH (20:15)
[2019-06-21] MEDS: VANCOMYCIN 2,000 MG in NS 500 ML IV SCH (20:41)
[2019-06-22] MEDS: PERCOCET-10 PO PRN ×3 (03:24→17:49)
[2019-06-22] MEDS: MAXIPIME 2 GM/NS 2 GM/100 ML IVPB IV SCH ×4 (05:46→22:08)
[2019-06-22] MEDS: CARDIZEM PO SCH ×4 (05:46→20:24)
[2019-06-22 06:13] LABS: BASO# 0.04 X1000 (0.0-0.2); BASO% 0.5 % (0.0-0.8); EOS# 0.34 X1000 (0.0-0.7); EOS% 4.6 % (0.0-10.0); HEMATOCRIT 42.3 % (37.0-47.0); HEMOGLOBIN 13.6 g/dL (12.0-16.0); IMM GRAN# 0.07 X1000 (0.0-0.04); IMM GRAN% 0.9 % (0.0-0.5); LYMPH# 0.76 X1000 (1.2-3.4); LYMPH% 10.2 % (20.5-51.1); MCH 29.4 PG (27-31); MCHC 32.2 g/dL (33-37); MCV 91.4 FL (81-99); MONO# 0.52 X1000 (0.11-0.59); MPV 9.9 FL (7.4-10.4); NEUT# 5.69 X1000 (1.4-6.5); NEUT% 76.8 % (42.2-75.2); PLT 285 X1000 (130-400); RBC 4.63 XMIL (4.2-5.4); WBC 7.42 X1000 (4.8-10.8)
[2019-06-22 06:23] LABS: AGAP 15; BUN 13 mg/dL (8-22); CALCIUM 8.6 mg/dL (8.8-10.2); CHLORIDE 92 mmol/L (98-107); COSMO 273; CREATININE 0.5 mg/dL (0.5-0.9); ESTIMATED GFR > 60; GLUCOSE 86 mg/dL (70-104); POTASSIUM 3.9 mmol/L (3.5-5.1); SODIUM 137 mmol/L (136-145); TCO2 30 mmol/L (25-35)
[2019-06-22 06:44] LABS: ALLEN TEST YES; BE 11.2 mmoll (-3.0-3.0); BLOOD TYPE ARTERIAL; HCO3-(ACT) 33.7 mmoll (20.0-26.0); PCO2(98.6) 46 mmHg (35-45); PO2(98.6) 121 mmHg (60-100); SAMPLE BLOOD
[2019-06-22 06:46] LABS: MODALITY BI PAP
--- NOTE | 2019-06-22 07:33 | Diag Imaging Result Doc PS360 ---
EXAM: CHEST-1 VIEW INDICATION: SOB TECHNIQUE: One view COMPARISON: 04/20/2020 FINDINGS: There has been some improvement of the infiltrate at the left lung base. The more diffuse right infiltrate is approximately stable. No new consolidation is identified. Cardiac silhouette is stable. IMPRESSION: Interval improvement on the left as described. Electronically signed by Vadim Boyle 06/22/2019 7:31 AM
[2019-06-22] MEDS: VANCOMYCIN 2,000 MG in NS 500 ML IV SCH ×2 (08:04→20:27)
[2019-06-22] MEDS: PATIENT'S OWN MED PO SCH ×2 (08:40→17:51)
[2019-06-22] MEDS: LASIX IV SCH (08:40)
[2019-06-22] MEDS: NEURONTIN PO SCH ×4 (08:43→22:00)
[2019-06-22] MEDS: EFFEXOR XR PO SCH ×2 (08:43→20:25)
[2019-06-22] MEDS: PEPCID PO SCH (08:44)
[2019-06-22] MEDS: KEPPRA PO SCH ×2 (08:44→20:27)
[2019-06-22] MEDS: SENOKOT PO SCH ×2 (08:45→20:24)
[2019-06-22] MEDS: ASPIRIN PO SCH (08:46)
[2019-06-22] MEDS: BUSPAR PO SCH ×2 (08:46→20:26)
[2019-06-22] MEDS: TOPROL XL PO SCH ×2 (08:47→20:26)
[2019-06-22] MEDS: MUCOMYST 20% INH SCH ×2 (10:41→22:03)
[2019-06-22] MEDS: XOPENEX NEB INH SCH ×3 (10:41→22:03)
--- NOTE | 2019-06-22 12:58 | PROGRESS NOTE ---
DATE: 06/22/2019 SUBJECTIVE: Patient has no major complaints. OBJECTIVE: Vital signs: Blood pressure 122/74, heart rate 87, respiratory rate of 28, temperature is 97.1 degrees. She is 97 on a non-rebreather. Cardiovascular: Regular rate and rhythm. Pulmonary: Diminished throughout, especially on the right side. Gastrointestinal: Soft, nontender, nondistended. Bowel sounds are positive. LABORATORY DATA: White count 7, hemoglobin and hematocrit 13 and 42, platelets 285,000. pH 7.5, pCO2 46, PO2 121. Basic looked okay. CRP is still very high. Wagner level is normal. Procalcitonin level is somewhat elevated. PROBLEM LIST: 1. Acute hypoxic respiratory failure due to pneumonia and multilobar right-sided pneumonia and left base pneumonia. Chest x-ray today shows some improvement. She is still on antibiotics which includes cefepime day 3, vancomycin day 4. I stopped the Flagyl, although I still think I am concerned about aspiration, but she is improving. 2. Multilobar pneumonia. Again, on antibiotics. Dr. Ellis is following. Pulmonary is following. 3. History of cerebrovascular accident, spina bifida. She is chronically weak. We are going to work on trying to get her a little bit stronger. 4. Seizure disorder. She is on Keppra. We will continue her treatment. There have not been any issues there. cc: Medardo Noel MD
[2019-06-22] MEDS ORDERED: NS 250 ML ONE (13:03)
[2019-06-22 13:54] LABS: INR 1.17; PROTIME 15.1 Seconds (11.0-16.0)
[2019-06-22 14:30] LABS: ANTINEUTROPHIL CYTOPLASMIC AB SEE COMMENTS
--- NOTE | 2019-06-22 14:43 | INFECTIOUS DISEASE PROGRESS NO ---
DATE: 06/22/2019 PRESENT ILLNESS: The patient has a diffuse right lung pneumonia and a left basilar pneumonia as well. The patient has yeast in her urine which is asymptomatic and does not require treatment. MEDICATIONS: This is day 4 of treatment with the combination of cefepime and vancomycin. PHYSICAL EXAMINATION: Vital Signs: Temperature is 97.1 degrees, pulse 85, respirations 13, blood pressure 120/68. Generally: This is an ill-appearing young female. She is in no acute distress. Her left-sided chest pain is clearing up. Head/eyes/ears/nose/throat: She can hear my spoken words and see near objects. She does seem to have a slight white coating on her tongue but she tells me that her tongue is not painful and she does not want to take nystatin swish and swallow. She can hear my spoken words and see near objects. Neck: No meningismus. Lungs: The patient had rales on the left side and clear on the right side. Abdomen: Soft and nontender. Cardiovascular: Heart rate is regular. Neurologic: The patient is alert. She has a left arm paralysis and a left leg paresis. LAB AND X-RAY: The x-ray shows stable right lung and improvement in the left lung. Creatinine 0.5, GFR is greater than 60. Urine culture is growing yeast. CBC shows a white count of 7420, hemoglobin 13.6, platelet count of 285,000. Blood gases show a pH of 7.5, a PO2 of 121, a pCO2 of 46. ASSESSMENT AND PLAN: The patient has pneumonia. My plan will be to continue cefepime and vancomycin. Even though the patient does have a slight white coating on the tongue, I do not think it is due to oral candidiasis because the patient is having no pain with it. As mentioned above the patient has funguria which is asymptomatic and does not require treatment. COMORBIDITIES: Patient has had a stroke. She also has spina bifida, asthma, and seizures. cc: MD SONIA Crawley
--- NOTE | 2019-06-22 17:02 | PULMONOLOGY PROGRESS NOTE ---
DATE: 06/22/2019 SUBJECTIVE: The patient is awake, alert, and conversant. She has a cough which is slightly wet. OBJECTIVE: Vital Signs: The patient has been afebrile for the last 24 hours. Blood pressure 118/80, heart rate 89, respiratory rate 25, oxygen saturation 93% on non-rebreather. HEENT: Pupils are equal and reactive. Oropharynx appears clear. Neck: Supple. Chest: Reveals rhonchi bilaterally. Cardiac: S1-S2 abdomen is soft. Extremities: Reveal left-sided hemiplegia. LABORATORIES: Chest x-ray reveals mild improvement at the left base. Microbiology reveals no new data. White blood count 7.42, hemoglobin 13.6, platelet count 285,000. Sodium 137, potassium 3.9, chloride 92, bicarbonate 30, BUN 13, creatinine 0.5. IMPRESSION: A 28-year-old with: 1. Bilateral multilobar pneumonia. 2. Acute hypoxemic respiratory failure. 3. Remote history of cerebrovascular accident with hemiplegia. 4. Nicotine addiction with ongoing tobacco use. PLAN: 1. Continue antibiotics per Infectious Disease. 2. Continue to cycle oxygen, BiPAP and non-rebreather as needed. 3. Continue bronchial hygiene. 4. Continue smoking cessation education. cc: Shashank Samuel MD
[2019-06-22] MEDS: LIORESAL PO PRN (17:54)
[2019-06-22] MEDS: ROBITUSSIN-AC PO PRN (20:24)
[2019-06-22] MEDS: TESSALON PO PRN (20:25)
[2019-06-22] MEDS: KLONOPIN PO SCH (20:25)
[2019-06-22] MEDS: LATUDA PO SCH (20:26)
[2019-06-22] MEDS: DESYREL PO SCH (20:26)
[2019-06-23] MEDS: PERCOCET-10 PO PRN ×3 (04:32→17:06)
[2019-06-23] MEDS: LIORESAL PO PRN ×2 (04:33→09:36)
[2019-06-23 04:57] LABS: ALLEN TEST YES; BLOOD TYPE ARTERIAL; HCO3-(ACT) 34.9 mmoll (20.0-26.0); METHB 0.8 % (0.0-1.5); O2(CT) 17.3 mL/dL (15.0-23.0); O2HB 92.4 % (95.0-99.0); PO2(98.6) 62 mmHg (60-100); SAMPLE BLOOD; SAO2 95.2 % (95.0-100.0); THB 13.3 g/dL (11.5-17.4); pH(98.6) 7.42 (7.35-7.45)
[2019-06-23 04:58] LABS: PCO2(98.6) 62 mmHg (35-45)
[2019-06-23 04:59] LABS: MODALITY NRB
[2019-06-23 05:57] LABS: BASO# 0.02 X1000 (0.0-0.2); BASO% 0.3 % (0.0-0.8); EOS# 0.03 X1000 (0.0-0.7); EOS% 0.4 % (0.0-10.0); HEMATOCRIT 42.3 % (37.0-47.0); HEMOGLOBIN 13.3 g/dL (12.0-16.0); IMM GRAN# 0.04 X1000 (0.0-0.04); IMM GRAN% 0.5 % (0.0-0.5); LYMPH# 1.16 X1000 (1.2-3.4); LYMPH% 14.6 % (20.5-51.1); MCH 28.7 PG (27-31); MCHC 31.4 g/dL (33-37); MCV 91.4 FL (81-99); MONO# 0.73 X1000 (0.11-0.59); MONO% 9.2 % (1.7-9.3); MPV 9.8 FL (7.4-10.4); NEUT# 5.95 X1000 (1.4-6.5); PLT 263 X1000 (130-400); RBC 4.63 XMIL (4.2-5.4); RDW 14.7 % (11.5-14.5); WBC 7.93 X1000 (4.8-10.8)
[2019-06-23 06:26] LABS: AGAP 10; BUN 10 mg/dL (8-22); CALCIUM 9.2 mg/dL (8.8-10.2); CHLORIDE 94 mmol/L (98-107); COSMO 280; CREATININE 0.4 mg/dL (0.5-0.9); ESTIMATED GFR > 60; GLUCOSE 88 mg/dL (70-104); POTASSIUM 3.5 mmol/L (3.5-5.1); SODIUM 141 mmol/L (136-145); TCO2 37 mmol/L (25-35)
[2019-06-23] MEDS: MAXIPIME 2 GM/NS 2 GM/100 ML IVPB IV SCH ×3 (06:26→22:34)
[2019-06-23] MEDS: CARDIZEM PO SCH ×3 (06:27→20:22)
--- NOTE | 2019-06-23 07:13 | Diag Imaging Result Doc PS360 ---
EXAM: CHEST-1 VIEW HISTORY: SOB TECHNIQUE: Single view COMPARISON: 06/22/2019 FINDINGS: There are dense infiltrates throughout the right lung similar to the prior exam. There are smaller infiltrates in the left base which are also similar. No cardiomegaly. Interval placement of a right-sided PICC line. The tip is near the junction of the superior vena cava and right atrium. IMPRESSION: Placement of a right-sided PICC line, otherwise no interval improvement. Electronically signed by Blue Workman 06/23/2019 7:11 AM
[2019-06-23] MEDS: VANCOMYCIN 2,000 MG in NS 500 ML IV SCH ×2 (09:21→21:17)
[2019-06-23] MEDS: PATIENT'S OWN MED PO SCH ×2 (09:28→17:06)
[2019-06-23] MEDS: EFFEXOR XR PO SCH ×2 (09:30→20:21)
[2019-06-23] MEDS: NEURONTIN PO SCH ×4 (09:30→20:22)
[2019-06-23] MEDS: BUSPAR PO SCH ×2 (09:31→20:21)
[2019-06-23] MEDS: KEPPRA PO SCH ×2 (09:31→20:21)
[2019-06-23] MEDS: PEPCID PO SCH (09:31)
[2019-06-23] MEDS: TOPROL XL PO SCH ×2 (09:32→20:21)
[2019-06-23] MEDS: ASPIRIN PO SCH (09:33)
[2019-06-23] MEDS: SENOKOT PO SCH ×2 (09:33→20:21)
[2019-06-23] MEDS: LASIX IV SCH (09:34)
[2019-06-23] MEDS: XOPENEX NEB INH SCH ×3 (09:50→21:15)
[2019-06-23] MEDS: MUCOMYST 20% INH SCH ×2 (09:50→21:15)
[2019-06-23] MEDS: DUONEB (A & A) INH PRN (10:02)
--- NOTE | 2019-06-23 13:50 | PULMONOLOGY PROGRESS NOTE ---
DATE: 06/23/2019 SUBJECTIVE: The patient is awake and alert. She is conversant. She is currently on a non- rebreather. OBJECTIVE: Vital Signs: The patient has been afebrile for the last 24 hours. Blood pressure 116/88, heart rate 101 respiratory rate 26. HEENT: Pupils are equal and reactive. Oropharynx appears clear. Neck: Neck is supple. Chest: Reveals rhonchi bilaterally. Cardiac exam: S1, S2. Abdomen: Abdomen is soft. Extremities: Reveal edema on the left associated with prior stroke. LABS AND X-RAYS: Chest x-ray reveals new right-sided PICC line. Bilateral infiltrates, right greater than left. White blood count 7.93, hemoglobin 13.3, platelet count 263,000. Sodium 141, potassium 3.5, chloride 94, bicarbonate 30. BUN 10, creatinine 0.4. IMPRESSION: A 28-year-old with prior stroke who has: 1. Bilateral multilobar pneumonia. 2. Acute hypoxemic respiratory failure. 3. Hemiplegia. 4. Nicotine addiction with ongoing tobacco use. RECOMMENDATION: 1. Continue bronchial hygiene. 2. Continue current antibiotic regimen. 3. Smoking cessation education. cc: Shashank Samuel MD
[2019-06-23] MEDS: TESSALON PO PRN (20:21)
[2019-06-23] MEDS: ROBITUSSIN-AC PO PRN (20:21)
[2019-06-23] MEDS: KLONOPIN PO SCH (20:22)
[2019-06-23] MEDS: LATUDA PO SCH (20:22)
[2019-06-23] MEDS: DESYREL PO SCH (20:22)
[2019-06-24 04:28] LABS: ALLEN TEST YES; BLOOD TYPE ARTERIAL; METHB 0.9 % (0.0-1.5); O2(CT) 18.5 mL/dL (15.0-23.0); O2HB 94.7 % (95.0-99.0); PO2(98.6) 79 mmHg (60-100); SAMPLE BLOOD; SAO2 97.6 % (95.0-100.0); THB 13.9 g/dL (11.5-17.4)
[2019-06-24 04:32] LABS: MODALITY BI PAP; PCO2(98.6) 66 mmHg (35-45)
[2019-06-24 06:20] LABS: BASO# 0.02 X1000 (0.0-0.2); BASO% 0.3 % (0.0-0.8); EOS# 0.02 X1000 (0.0-0.7); EOS% 0.3 % (0.0-10.0); HEMATOCRIT 40.5 % (37.0-47.0); HEMOGLOBIN 12.8 g/dL (12.0-16.0); IMM GRAN# 0.05 X1000 (0.0-0.04); IMM GRAN% 0.7 % (0.0-0.5); LYMPH# 1.39 X1000 (1.2-3.4); LYMPH% 19.7 % (20.5-51.1); MCHC 31.6 g/dL (33-37); MCV 91.8 FL (81-99); MONO% 11.3 % (1.7-9.3); MPV 9.9 FL (7.4-10.4); NEUT# 4.77 X1000 (1.4-6.5); NEUT% 67.7 % (42.2-75.2); PLT 257 X1000 (130-400); RBC 4.41 XMIL (4.2-5.4); RDW 14.8 % (11.5-14.5); WBC 7.05 X1000 (4.8-10.8)
[2019-06-24] MEDS: PERCOCET-10 PO PRN ×3 (06:36→17:33)
[2019-06-24] MEDS: LIORESAL PO PRN (06:36)
[2019-06-24] MEDS: CARDIZEM PO SCH ×3 (06:36→20:11)
[2019-06-24] MEDS: MAXIPIME 2 GM/NS 2 GM/100 ML IVPB IV SCH ×3 (06:40→22:35)
[2019-06-24 06:48] LABS: AGAP 9; BUN 10 mg/dL (8-22); CALCIUM 9.1 mg/dL (8.8-10.2); CHLORIDE 93 mmol/L (98-107); COSMO 274; CREATININE 0.4 mg/dL (0.5-0.9); ESTIMATED GFR > 60; GLUCOSE 89 mg/dL (70-104); POTASSIUM 3.6 mmol/L (3.5-5.1); SODIUM 138 mmol/L (136-145); TCO2 36 mmol/L (25-35)
--- NOTE | 2019-06-24 07:36 | Diag Imaging Result Doc PS360 ---
EXAM: CHEST-1 VIEW 06/24/2019 HISTORY: SOB TECHNIQUE: AP portable at 0517 COMMENT: There is a PICC line with its tip above the right atrium. There is alveolar opacity in both lower lobes worse on the right than the left. Compared to 06/23/2019, there has been no appreciable change. IMPRESSION: Pulmonary edema and/or pneumonia. Electronically signed by Thuan Eli 06/24/2019 7:34 AM
--- NOTE | 2019-06-24 09:06 | INFECTIOUS DISEASE PROGRESS NO ---
DATE: 06/24/2019 PRESENT ILLNESS: The patient has a bilateral lower lobe pneumonia. She does have yeast in her urine, but this is asymptomatic and does not require treatment. MEDICATIONS: This is day 6 of treatment with the combination of cefepime and vancomycin. PHYSICAL EXAMINATION: Vital Signs: Temperature is 97.8 degrees, pulse 85, respirations 18, blood pressure 114/57. General: This is a somewhat ill-appearing, young female. She actually looks better than she did 2 to 3 days ago. She is in no acute distress, and she is not even complaining today of left-sided chest pain. HEENT: She can hear my spoken words and see near objects. I do not see any white coating on her tongue at this time. Neck: No pain with movement. Lungs: Clear to auscultation. Cardiovascular: Heart rate is regular. Abdomen: Soft and not tender. Neurologic: The patient is alert. She has a left arm paralysis and a left leg paresis. She does not have a tremor. Extremities: The patient has bilateral leg edema. The patient has a PICC in her right arm. The site is not erythematous or purulent. IMAGING AND LABORATORY DATA: Chest x-ray shows stable bilateral lower lobe opacities. Creatinine is 0.4. GFR is greater than 60. Blood gases show a pH of 7.4, a PO2 of 79, a pCO2 of 66. The patient's CBC shows a white count of 7050, hemoglobin 12.8, and platelet count 257,000. ASSESSMENT AND PLAN: The patient has pneumonia. My plan is to continue cefepime and vancomycin. Since the white coating on the patient's tongue is gone without getting treatment for oral candidiasis, I think it means that she does not have oral candidiasis, and therefore does not require treatment with it. Also, as mentioned above, she does have funguria, but it is asymptomatic and does not require treatment either. COMORBIDITIES: The patient has had a stroke. She also has spina bifida, asthma, and seizures. cc: Drew Ellis MD
[2019-06-24] MEDS: VANCOMYCIN 2,000 MG in NS 500 ML IV SCH ×2 (09:09→20:07)
[2019-06-24] MEDS: PATIENT'S OWN MED PO SCH ×2 (09:23→17:34)
[2019-06-24] MEDS: ASPIRIN PO SCH (09:23)
[2019-06-24] MEDS: NEURONTIN PO SCH ×4 (09:25→20:11)
[2019-06-24] MEDS: BUSPAR PO SCH ×2 (09:26→20:13)
[2019-06-24] MEDS: KEPPRA PO SCH ×2 (09:27→20:11)
[2019-06-24] MEDS: EFFEXOR XR PO SCH ×2 (09:27→20:13)
[2019-06-24] MEDS: TOPROL XL PO SCH ×2 (09:28→20:12)
[2019-06-24] MEDS: PEPCID PO SCH (09:28)
[2019-06-24] MEDS: SENOKOT PO SCH ×2 (09:28→20:11)
[2019-06-24] MEDS: LASIX IV SCH (09:30)
[2019-06-24] MEDS: XOPENEX NEB INH SCH ×3 (10:44→21:35)
[2019-06-24] MEDS: MUCOMYST 20% INH SCH ×2 (10:44→21:35)
[2019-06-24] MEDS ORDERED: DIAMOX IV ONE (12:37)
[2019-06-24] MEDS ORDERED: STERILE WATER INJ. ONE (13:48)
[2019-06-24] MEDS ORDERED: DIFLUCAN PO ONE (14:33)
--- NOTE | 2019-06-24 14:44 | PULMONOLOGY PROGRESS NOTE ---
DATE: 06/24/2019 SUBJECTIVE: The patient is awake, alert, and conversant. She is currently sitting in the bedside chair. She is anxious to go to the floor so she can spend time with her son. OBJECTIVE: Vital Signs: The patient has been afebrile for the last 24 hours, blood pressure 130/85, heart rate 97, respiratory rate 22, oxygen saturation 93% on nasal cannula. HEENT: Pupils are equal and reactive. Oropharynx appears clear. Neck: Supple. Chest: Crackles and rhonchi bilaterally, with decreased breath sounds, right base. Cardiac: S1, S2. Abdomen: Soft. Extremities: Without edema. LABORATORY DATA: Sodium 138, potassium 3.6, chloride 93, bicarbonate 36, BUN 10, creatinine 0.4, glucose 89. White blood count 7.05, hemoglobin 12.8, platelet count 257,000. Arterial blood gas: PH 7.40, pCO2 of 66, PO2 of 79, with a normal lactate. IMPRESSION: A 28-year-old with: 1. Bilateral multilobar pneumonia. 2. Acute hypoxemic respiratory failure. 3. Nicotine addiction with ongoing tobacco use. 4. Hemiplegia. DISCUSSION: A 28-year-old with problems outlined above. Clinically, she continues to improve. PLAN: 1. Continue current diet regimen. 2. Continue current antibiotics per Infectious Disease. 3. Continue bronchial hygiene. 4. Continue nasal cannula and BiPAP as needed for respiratory failure. 5. The patient can go to the floor from a pulmonary perspective. cc: Shashank Samuel MD
--- NOTE | 2019-06-24 14:59 | PROGRESS NOTE ---
DATE: 06/24/2019 SUBJECTIVE: The patient has no major complaints. She looks better today, more awake, more alert, more strength in her voice. OBJECTIVE: Vital Signs: Blood pressure 111/72, heart rate of 85, respiratory rate 18, temperature 97.5 degrees, saturating 94% on 6 L. Cardiovascular: Regular rate and rhythm. Pulmonary: Bilateral breath sounds. Diminished at the bases. GI: Soft, nontender, nondistended. Bowel sounds are positive. LABORATORY DATA: White count 7, hemoglobin and hematocrit 12 and 40, platelets 257,000. PH 7.4, pCO2 of 66, PaO2 of 79. Basic was normal. PROBLEM LIST: 1. Acute hypoxic respiratory failure. Will continue treatments for pneumonia. She is on cefepime day 4, vancomycin day 5, and we will continue to monitor. 2. Multilobar pneumonia with most of its focus on the right side. Again, antibiotics are cefepime and vancomycin per Dr. Ellis. 3. History of cerebrovascular accident with residual weakness. 4. History of spina bifida. We are going to continue to follow. She will need physical therapy reconditioning when she is more stable. 5. Seizure disorder. Cleared on current dose of Keppra. 6. Patient complaining of vaginal yeast infection, so we will start Diflucan. 7. She is also requesting a regular diet. Overall, I think she is improving. She may be able to go to step-down in another 24 hours. cc: Medardo Noel MD
[2019-06-24] MEDS: LATUDA PO SCH (20:11)
[2019-06-24] MEDS: KLONOPIN PO SCH (20:11)
[2019-06-24] MEDS: ROBITUSSIN-AC PO PRN (20:11)
[2019-06-24] MEDS: DESYREL PO SCH (20:11)
[2019-06-24] MEDS: TESSALON PO PRN (20:12)
[2019-06-24] MEDS ORDERED: LASIX IV ONE (21:00)
[2019-06-24] MEDS: NS NEB INH SCH (21:35)
[2019-06-25] MEDS: PERCOCET-10 PO PRN ×4 (03:10→17:47)
--- NOTE | 2019-06-25 04:19 | PROGRESS NOTE ---
DATE: 06/23/2019 SUBJECTIVE: She seems more awake today, alert. No major complaints. OBJECTIVE: Blood pressure 128/75, heart rate 98, respiratory 15, temperature degrees, 96 percent on non-rebreather.Cardiovascular: Regular rate and rhythm. Pulmonary: Bilateral breath sounds, clear to auscultation. GI: Soft, nontender, nondistended. Bowel sounds are positive. LABORATORY DATA: White count 7, hemoglobin and hematocrit 13 and 42, platelets 263,000, pH 7.42, pCO2 62, PaO2 62 on 100%, which is a drop from yesterday but improvement from the day before. Basic looked okay. IMAGING: Chest x-ray is unchanged. Still with dense infiltrates throughout the right lung, I did hear rales today on the left side. PROBLEM LIST: 1. Multilobar pneumonia. We will continue empiric antibiotics she is on cefepime which is day 4 and vancomycin which is I think is the same. Clinically she seems to be responding, but she is still on high-flow oxygen. We will continue see how she does. 2. This multilobar pneumonia again day 4 cefepime, day 5 vancomycin. I did not stop the Flagyl and I do not know what is documented as Dr. Ellis, but I am still concerned about aspiration specially since she has got a right-sided pneumonia. She has a history of cerebrovascular accident . She has had a previous tracheostomy, but we will follow per Dr. Ellis. 3. History of cerebrovascular accident, spina bifida. She is very weak. We will continue to follow. She may need some PT when she stabilizes more. 4. Seizure disorder. Stable on Keppra. DISPOSITION: Prognosis is still guarded but we will continue to follow. She is not deteriorating, but she is not improving by leaps and bounce, but we will see how she does. cc: Medardo Noel MD [facility]
[2019-06-25 04:56] LABS: ALLEN TEST YES; BLOOD TYPE ARTERIAL; HCO3-(ACT) 30.3 mmoll (20.0-26.0); O2(CT) 17.8 mL/dL (15.0-23.0); O2HB 93.7 % (95.0-99.0); PO2(98.6) 77 mmHg (60-100); SAMPLE BLOOD; SAO2 94.7 % (95.0-100.0); THB 13.5 g/dL (11.5-17.4); pH(98.6) 7.32 (7.35-7.45)
[2019-06-25 04:58] LABS: MODALITY BI PAP; PCO2(98.6) 69 mmHg (35-45)
[2019-06-25] MEDS: MAXIPIME 2 GM/NS 2 GM/100 ML IVPB IV SCH ×3 (06:33→23:06)
[2019-06-25] MEDS: CARDIZEM PO SCH ×3 (06:41→20:07)
--- NOTE | 2019-06-25 06:43 | Diag Imaging Result Doc PS360 ---
CHEST-1 VIEW - 06/25/2019 INDICATION: SOB COMPARISON: 06/24/2019 FINDINGS: Stable right PICC line. Stable significant infiltrate at the right lung base. Stable faint patchy infiltrate at the left lung base as well. Heart size remains normal. IMPRESSION: No change from prior. Electronically signed by Alvaro Tse 06/25/2019 6:41 AM
[2019-06-25 06:50] LABS: AGAP 13; BUN 10 mg/dL (8-22); CALCIUM 9.1 mg/dL (8.8-10.2); CHLORIDE 98 mmol/L (98-107); COSMO 276; CREATININE 0.5 mg/dL (0.5-0.9); ESTIMATED GFR > 60; GLUCOSE 82 mg/dL (70-104); POTASSIUM 3.6 mmol/L (3.5-5.1); SODIUM 139 mmol/L (136-145); TCO2 28 mmol/L (25-35)
--- NOTE | 2019-06-25 07:10 | INFECTIOUS DISEASE PROGRESS NO ---
DATE: 06/25/2019 PRESENT ILLNESS: Patient has bilateral lower lobe pneumonia. She has yeast in her urine, but this is asymptomatic and does not require treatment. MEDICATIONS: This is day 7 of treatment with cefepime and vancomycin. PHYSICAL EXAMINATION: Vital Signs: Temperature 98.3 degrees, pulse 77, respirations 12, and blood pressure 101/60. General: This is a somewhat ill-appearing young female. She is in no acute distress. She currently is wearing a BiPAP mask. Head/eyes/ears/nose/throat: As mentioned above, she has a BiPAP mask on. I did not see any white patches in her mouth. Neck: No pain with movement. Lungs: Clear to auscultation. Cardiovascular: Heart rate is regular. Abdomen: Soft and nontender. Neurologic: The patient is alert. She has a left arm paralysis and left leg paresis. She does not have a tremor. Extremities: Patient has a PICC in her right arm. The site is not erythematous or tender. She also has bilateral leg edema but no erythema. LABORATORY AND RADIOLOGY: There is no new radiographic study back today. The patient's CBC shows a white count of 7050, hemoglobin 12.8, and platelet count 257,000. Creatinine is 0.4. GFR is greater than 60. She has arterial blood gases which showed a pH of 7.32, PO2 of 77, and pCO2 of 69. ASSESSMENT AND PLAN: Patient has pneumonia. I plan on continuing cefepime and vancomycin and vancomycin. As mentioned above, she does have funguria, but this is asymptomatic and does not require treatment. COMORBIDITIES: The patient has had a stroke. She also has spina bifida, asthma, and seizures. She does have a seizure disorder. She told me it only involves her legs. She also is a cigarette smoker, but she told me months ago she stopped smoking. cc: Drew Ellis MD
[2019-06-25 07:12] LABS: BASO# 0.03 X1000 (0.0-0.2); BASO% 0.4 % (0.0-0.8); EOS# 0.02 X1000 (0.0-0.7); EOS% 0.3 % (0.0-10.0); HEMATOCRIT 41.3 % (37.0-47.0); HEMOGLOBIN 12.9 g/dL (12.0-16.0); IMM GRAN# 0.09 X1000 (0.0-0.04); IMM GRAN% 1.2 % (0.0-0.5); LYMPH# 1.52 X1000 (1.2-3.4); LYMPH% 20.1 % (20.5-51.1); MCH 28.5 PG (27-31); MCHC 31.2 g/dL (33-37); MCV 91.2 FL (81-99); MONO# 0.82 X1000 (0.11-0.59); MONO% 10.8 % (1.7-9.3); MPV 9.8 FL (7.4-10.4); NEUT# 5.09 X1000 (1.4-6.5); NEUT% 67.2 % (42.2-75.2); PLT 257 X1000 (130-400); RBC 4.53 XMIL (4.2-5.4); RDW 14.8 % (11.5-14.5); WBC 7.57 X1000 (4.8-10.8)
[2019-06-25 07:26] LABS: MAGNESIUM 2.2 mg/dL (1.5-2.7); PHOSPHORUS 4.4 mg/dL (2.7-4.5)
[2019-06-25] MEDS: VANCOMYCIN 2,000 MG in NS 500 ML IV SCH (08:34)
[2019-06-25] MEDS: LASIX IV SCH (08:34)
[2019-06-25] MEDS: PEPCID PO SCH (08:35)
[2019-06-25] MEDS: NEURONTIN PO SCH ×4 (08:35→20:07)
[2019-06-25] MEDS: TOPROL XL PO SCH ×2 (08:35→20:08)
[2019-06-25] MEDS: EFFEXOR XR PO SCH ×2 (08:35→20:06)
[2019-06-25] MEDS: KEPPRA PO SCH ×2 (08:35→20:08)
[2019-06-25] MEDS: ASPIRIN PO SCH (08:35)
[2019-06-25] MEDS: SENOKOT PO SCH ×2 (08:37→20:08)
[2019-06-25] MEDS: PATIENT'S OWN MED PO SCH ×2 (08:37→17:28)
[2019-06-25] MEDS: LIORESAL PO PRN ×3 (08:37→17:48)
[2019-06-25] MEDS: BUSPAR PO SCH ×2 (08:37→20:06)
[2019-06-25] MEDS: XOPENEX NEB INH SCH ×3 (09:09→20:59)
[2019-06-25] MEDS: MUCOMYST 20% INH SCH ×2 (09:09→20:58)
[2019-06-25 11:05] LABS: BANDS 4 % (0-1); LYMPHS 20 % (21-51); MONO 6 % (1-9); SEGS 70 % (42-75)
[2019-06-25] MEDS: ROBITUSSIN-AC PO PRN (15:54)
[2019-06-25] MEDS: KLONOPIN PO SCH (20:06)
[2019-06-25] MEDS: LATUDA PO SCH (20:07)
[2019-06-25] MEDS: DESYREL PO SCH (20:08)
[2019-06-25] MEDS: NS NEB INH SCH (20:59)
[2019-06-26] MEDS: VANCOMYCIN 2,000 MG in NS 500 ML IV SCH ×3 (00:10→21:17)
[2019-06-26 05:27] LABS: ALLEN TEST YES; BE 7.4 mmoll (-3.0-3.0); BLOOD TYPE ARTERIAL; HCO3-(ACT) 30.7 mmoll (20.0-26.0); METHB 0.4 % (0.0-1.5); O2(CT) 19.2 mL/dL (15.0-23.0); O2HB 96.8 % (95.0-99.0); PCO2(98.6) 40 mmHg (35-45); PO2(98.6) 115 mmHg (60-100); SAMPLE BLOOD; SAO2 99.4 % (95.0-100.0)
[2019-06-26 06:00] LABS: MODALITY CANNULA
[2019-06-26 06:15] LABS: BASO# 0.02 X1000 (0.0-0.2); BASO% 0.3 % (0.0-0.8); EOS# 0.02 X1000 (0.0-0.7); EOS% 0.3 % (0.0-10.0); HEMATOCRIT 40.7 % (37.0-47.0); HEMOGLOBIN 12.9 g/dL (12.0-16.0); IMM GRAN# 0.07 X1000 (0.0-0.04); LYMPH# 1.67 X1000 (1.2-3.4); LYMPH% 23.8 % (20.5-51.1); MCH 28.8 PG (27-31); MCHC 31.7 g/dL (33-37); MCV 90.8 FL (81-99); MONO# 0.64 X1000 (0.11-0.59); MONO% 9.1 % (1.7-9.3); NEUT% 65.5 % (42.2-75.2); PLT 233 X1000 (130-400); RBC 4.48 XMIL (4.2-5.4); RDW 14.6 % (11.5-14.5); WBC 7.02 X1000 (4.8-10.8)
[2019-06-26] MEDS: CARDIZEM PO SCH ×3 (07:01→21:20)
--- NOTE | 2019-06-26 07:01 | Diag Imaging Result Doc PS360 ---
EXAM: CHEST-1 VIEW HISTORY: SOB TECHNIQUE: Single view COMPARISON: 06/25/2017 FINDINGS: There are infiltrates throughout the right lung with basilar atelectasis. The findings are similar to the prior exam. No cardiomegaly. No change in the right-sided PICC line. Minimal atelectasis or small infiltrates in the left base. IMPRESSION: No interval improvement Electronically signed by Blue Workman 06/26/2019 6:39 AM
[2019-06-26] MEDS: MAXIPIME 2 GM/NS 2 GM/100 ML IVPB IV SCH ×3 (07:03→23:55)
[2019-06-26] MEDS: TOPROL XL PO SCH ×2 (08:02→21:20)
[2019-06-26] MEDS: BUSPAR PO SCH ×2 (08:02→21:20)
[2019-06-26] MEDS: EFFEXOR XR PO SCH ×2 (08:02→21:20)
[2019-06-26] MEDS: KEPPRA PO SCH ×2 (08:03→21:20)
[2019-06-26] MEDS: PEPCID PO SCH (08:03)
[2019-06-26] MEDS: ASPIRIN PO SCH (08:03)
[2019-06-26] MEDS: NEURONTIN PO SCH ×4 (08:03→21:19)
[2019-06-26] MEDS: LIORESAL PO PRN ×3 (08:03→16:29)
[2019-06-26] MEDS: PERCOCET-10 PO PRN ×3 (08:03→16:29)
[2019-06-26] MEDS: SENOKOT PO SCH ×2 (08:03→21:20)
[2019-06-26] MEDS: PATIENT'S OWN MED PO SCH ×2 (08:04→16:29)
[2019-06-26] MEDS: LASIX IV SCH (08:04)
[2019-06-26 09:18] LABS: AGAP 9; BUN 10 mg/dL (8-22); CALCIUM 9.2 mg/dL (8.8-10.2); CHLORIDE 97 mmol/L (98-107); COSMO 275; CREATININE 0.5 mg/dL (0.5-0.9); ESTIMATED GFR > 60; GLUCOSE 75 mg/dL (70-104); POTASSIUM 3.5 mmol/L (3.5-5.1); SODIUM 139 mmol/L (136-145); TCO2 33 mmol/L (25-35)
--- NOTE | 2019-06-26 09:32 | INFECTIOUS DISEASE PROGRESS NO ---
DATE: 06/26/2019 PRESENT ILLNESS: The patient has a right lung infiltrate with a minimal left basilar infiltrate/atelectasis. MEDICATIONS: This is day 8 of treatment with the combination of vancomycin and cefepime. PHYSICAL EXAMINATION: Vital Signs: Temperature is 97.4 degrees, pulse 96, respirations 23, blood pressure 99/63. General: This is a somewhat ill-appearing young female. She is in no acute distress. Today, she just has oxygen nasally. HEENT: No drainage noted from the nose or the ears. She does not have any white coating on her tongue. Neck: No pain with movement. Lungs: Clear to auscultation. Cardiovascular: Heart rate is regular. Abdomen: Soft and nontender. Neurologic: The patient is alert. She has a left arm paralysis and a left leg paresis. Extremities: The patient has a PICC in her right arm. The site is not bleeding or purulent. The patient has bilateral leg edema but no erythema. LABS/RADIOLOGY: Chest x-ray shows a right lung infiltrate and a minimal left basilar infiltrate/atelectasis. Creatinine is 0.5, GFR is greater than 60. CBC shows a WBC of 7020, hemoglobin 12.9, and platelet count 233,000. Blood gases show a pH of 7.5, a PO2 of 115 and a pCO2 of 40. ASSESSMENT AND PLAN: The patient has pneumonia. My plan is to continue cefepime and vancomycin. COMORBIDITIES: The patient has had a stroke with resulting left arm paralysis and left leg paresis. She also has spina bifida, asthma, and history of seizures which only involves her legs. The patient has been a cigarette smoker but she told me she quit months ago. cc: Drew Ellis MD
--- NOTE | 2019-06-26 09:35 | PULMONOLOGY PROGRESS NOTE ---
DATE: 06/25/2019 SUBJECTIVE: The patient is awake and alert. She has a slightly wet cough. She denies shortness of breath. OBJECTIVE: Vital Signs: The patient has been afebrile for the last 24 hours. Blood pressure 130/94, heart rate 99, respiratory rate 25, oxygen saturation 94% on nasal cannula. HEENT: Pupils are equal and reactive. Oropharynx appears clear. Neck: Supple. Chest: Reveals crackles predominantly at the right base. Cardiac: S1-S2. Abdomen: Obese and soft. Extremities: Without edema. LABORATORIES: Arterial blood gas reveals a pH 7.32, pCO2 of 69, PO2 of 77. IMPRESSION: A 28-year-old with: 1. Remote history of stroke. 2. Bilateral multilobar pneumonia. 3. Acute hypoxemic respiratory failure. 4. Nicotine addiction with ongoing tobacco use. PLAN: 1. Continue current diet regimen. 2. Continue bronchial hygiene. 3. Continue current antibiotics. 4. Wean oxygen as tolerated. cc: Shashank Samuel MD
[2019-06-26] MEDS: MUCOMYST 20% INH SCH ×2 (10:59→21:45)
[2019-06-26] MEDS: XOPENEX NEB INH SCH ×3 (10:59→21:45)
[2019-06-26] MEDS: MORPHINE IV PRN ×2 (13:04→21:19)
--- NOTE | 2019-06-26 14:13 | PROGRESS NOTE ---
DATE: 06/26/2019 SUBJECTIVE: The patient has no major complaints. She is much improved. She is sitting up in bed, on 3 L. Breathing has improved. OBJECTIVE: Blood pressure 125/87, heart rate of 77, respiratory rate of 17, temperature was 97 degrees. Cardiovascular: Regular rate and rhythm. Pulmonary: Bilateral breath sounds diminished at the bases. GI: Soft, nontender, nondistended. Bowel sounds were positive. White count 7, hemoglobin and hematocrit 12 and 40, platelets 233,000. PH 7.5, pCO2 of 40, PO2 of 115. Basic was normal. PROBLEM LIST: 1. Acute hypoxic respiratory failure. We will continue pneumonia treatments. She is on day 5 of cefepime, day 6 of vancomycin. We will continue to monitor. She has a fairly extensive problem. 2. Multilobar pneumonia. She is on cefepime and vancomycin. 3. History of cerebrovascular accident, residual weakness, spina bifida. We will continue physical therapy and monitor her. 4. Seizure disorder. She is on Keppra. DISPOSITION: I think she is stable so we are going to look at transferring her to stepdown, possibly to the floor. cc: Medardo Noel MD
--- NOTE | 2019-06-26 19:42 | PROVIDER PROGRESS NOTE ---
Progress Note Dr. Todd Progress Note/Pulmonary and or critical care Subjective: The patient is sitting at the bedside chair and having lunch. She is on NC at 3L and tolerates well. She complains of bilateral lower chest pain worsening with cough or deep breathing. She states the pain has been improved some, but still very significant and she asks for extra pain medicine. No family at the bedside. Input was appreciated from Dr. Noel and other teams on the case. Objective: Vital Signs: T 97.0 (no fever in last 24 hours), [place] 83, RR 19, BP 126/86 and SaO2 100% on NC 3L. I/O +515 ml Physical Examination: General: Sitting at the bedside chair and having lunch. No acute distress noted. HEENT: Normocephalic. Trachea midline. Mucosa pink and moist Chest: Even and unlabored. Early inspiratory crackles LLL with coarse breathing sounds bilatearlly. CVS: Regular rate and rhythm with S1 and S2 appreciated. Abdomen: Soft. Protuberant. Nontender. Bowel sounds present in all 4 quadrants. Extremities: No pedal edema. LLE cold to touch with diminished dorsalis pedis. No cyanosis. No clubbing. Neuro: A/O x3. Speech fluent. Follow commands. Left side hemiplegia noted. Labs and Radiology: Laboratory Results 06/25/19 06/26/19 06/26/19 22:13 04:30 04:30 WBC 7.02 RBC 4.48 Hgb 12.9 Hct 40.7 MCV 90.8 MCH 28.8 MCHC 31.7 L RDW Std Deviation 14.6 H Plt Count 233 MPV 10.0 Immature Gran % (Auto) 1.0 H Neut % (Auto) 65.5 Lymph % (Auto) 23.8 [place] % (Auto) 9.1 Eos % (Auto) 0.3 Baso % (Auto) 0.3 Immature Gran # (Auto) 0.07 H Neut # (Auto) 4.60 Lymph # (Auto) 1.67 [place] # (Auto) 0.64 H Eos # (Auto) 0.02 Baso # (Auto) 0.02 Specimen Type Sample Site pH pCO2 pO2 HCO3 Base Excess Oxyhemoglobin ABG O2 Sat (Calculated) ABG O2 Saturation ABG Carboxyhemoglobin ABG Methemoglobin Kvng Test A-a O2 Difference Total Hemoglobin Lactate Liter Flow Blood Gas Modality FiO2 % Sodium 139 Potassium 3.5 Chloride 97 L Carbon Dioxide 33 Anion Gap 9 BUN 10 Creatinine 0.5 Estimated GFR/1.73 m2 > 60 BUN/Creatinine Ratio 20 Glucose 75 Calculated Osmolality 275 Calcium 9.2 Random Vancomycin 18.60 06/26/19 05:20 WBC RBC Hgb Hct MCV MCH MCHC RDW Std Deviation Plt Count MPV Immature Gran % (Auto) Neut % (Auto) Lymph % (Auto) [place] % (Auto) Eos % (Auto) Baso % (Auto) Immature Gran # (Auto) Neut # (Auto) Lymph # (Auto) [place] # (Auto) Eos # (Auto) Baso # (Auto) Specimen Type ARTERIAL Sample Site R RADIAL pH 7.50 H pCO2 40 pO2 115 H HCO3 30.7 H Base Excess 7.4 H Oxyhemoglobin 96.8 ABG O2 Sat (Calculated) 19.2 ABG O2 Saturation 99.4 ABG Carboxyhemoglobin 2.20 ABG Methemoglobin 0.4 Kvng Test YES A-a O2 Difference 149.0 Total Hemoglobin 14.0 Lactate 0.80 Liter Flow 6.0 Blood Gas Modality CANNULA FiO2 % 44.0 Sodium Potassium Chloride Carbon Dioxide Anion Gap BUN Creatinine Estimated GFR/1.73 m2 BUN/Creatinine Ratio Glucose Calculated Osmolality Calcium Random Vancomycin Assessment: Acute respiratory failure, hypoxemic and hypercapnia. Severe bilateral multilobar pneumonia right greater than left with reactive mediastinal and hilar lymphadenopathy. CXR today shows stable infiltrates throughout the right lung with basilar atelectasis and minimal atelectasis or small infiltrates in the left base. Ongoing tobacco use. 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 Aware. Prognosis is guarded. Plan: Continue current treatment and supportive care per admitting and other teams on the case. Supplemental oxygen. Continue titrating oxygen per clinical protocol. Antibiotics, including Cefepime and Vancomycin per Dr. Ellis. Bronchodilators. Mucomyst. Appropriate DVT and GI prophylaxis We started Morphine 2mg IV Q8h as needed. Evaluation time in minutes: 31 minutes.
[2019-06-26] MEDS: DESYREL PO SCH (21:19)
[2019-06-26] MEDS: KLONOPIN PO SCH (21:20)
[2019-06-26] MEDS: LATUDA PO SCH (21:20)
[2019-06-27 05:30] LABS: ALLEN TEST YES; BE 6.8 mmoll (-3.0-3.0); BLOOD TYPE ARTERIAL; HCO3-(ACT) 30.2 mmoll (20.0-26.0); METHB 0.5 % (0.0-1.5); O2(CT) 21.3 mL/dL (15.0-23.0); O2HB 95.9 % (95.0-99.0); PCO2(98.6) 46 mmHg (35-45); PO2(98.6) 75 mmHg (60-100); SAMPLE BLOOD; SAO2 99.1 % (95.0-100.0); THB 15.8 g/dL (11.5-17.4); pH(98.6) 7.45 (7.35-7.45)
[2019-06-27 05:31] LABS: MODALITY CANNULA
[2019-06-27] MEDS: MAXIPIME 2 GM/NS 2 GM/100 ML IVPB IV SCH ×3 (06:05→23:53)
[2019-06-27] MEDS: CARDIZEM PO SCH ×3 (06:05→21:17)
[2019-06-27 06:10] LABS: BASO# 0.02 X1000 (0.0-0.2); BASO% 0.3 % (0.0-0.8); EOS# 0.01 X1000 (0.0-0.7); EOS% 0.1 % (0.0-10.0); HEMATOCRIT 40.5 % (37.0-47.0); IMM GRAN# 0.08 X1000 (0.0-0.04); LYMPH% 18.1 % (20.5-51.1); MCH 28.9 PG (27-31); MCHC 32.1 g/dL (33-37); MONO% 10.4 % (1.7-9.3); NEUT# 5.41 X1000 (1.4-6.5); NEUT% 70.1 % (42.2-75.2); PLT 232 X1000 (130-400); RDW 14.5 % (11.5-14.5); WBC 7.72 X1000 (4.8-10.8)
[2019-06-27] MEDS: MORPHINE IV PRN ×2 (06:40→15:24)
[2019-06-27 06:59] LABS: AGAP 12; BUN 9 mg/dL (8-22); CALCIUM 8.9 mg/dL (8.8-10.2); CHLORIDE 99 mmol/L (98-107); COSMO 279; CREATININE 0.4 mg/dL (0.5-0.9); ESTIMATED GFR > 60; GLUCOSE 85 mg/dL (70-104); POTASSIUM 4.1 mmol/L (3.5-5.1); SODIUM 141 mmol/L (136-145); TCO2 30 mmol/L (25-35)
--- NOTE | 2019-06-27 07:13 | Diag Imaging Result Doc PS360 ---
EXAM: CHEST-1 VIEW 06/27/2019 HISTORY: SOB TECHNIQUE: AP portable at 0549 COMMENT: There is alveolar opacity throughout much of the right lung. Compared to 06/26/2019 there has been some improvement in the left base. Otherwise are has been no significant change. IMPRESSION: Right-sided pneumonia. Atelectasis versus pneumonia left lower lobe, improved. Electronically signed by Thuan Eli 06/27/2019 7:11 AM
[2019-06-27] MEDS: XOPENEX NEB INH SCH ×3 (07:50→22:01)
[2019-06-27] MEDS: MUCOMYST 20% INH SCH ×2 (07:50→22:01)
[2019-06-27] MEDS: PEPCID PO SCH (08:40)
[2019-06-27] MEDS: NEURONTIN PO SCH ×4 (08:40→21:16)
[2019-06-27] MEDS: EFFEXOR XR PO SCH ×2 (08:41→21:17)
[2019-06-27] MEDS: KEPPRA PO SCH ×2 (08:42→21:17)
[2019-06-27] MEDS: TOPROL XL PO SCH ×2 (08:42→21:16)
[2019-06-27] MEDS: ASPIRIN PO SCH (08:42)
[2019-06-27] MEDS: SENOKOT PO SCH ×2 (08:44→21:17)
[2019-06-27] MEDS: PERCOCET-10 PO PRN ×4 (08:59→21:16)
[2019-06-27] MEDS: PATIENT'S OWN MED PO SCH ×2 (09:00→16:58)
[2019-06-27] MEDS: LASIX IV SCH (09:02)
[2019-06-27] MEDS: VANCOMYCIN 2,000 MG in NS 500 ML IV SCH ×2 (09:02→21:15)
--- NOTE | 2019-06-27 10:55 | INFECTIOUS DISEASE PROGRESS NO ---
DATE: 06/27/2019 PRESENT ILLNESS: The patient has bilateral pneumonia. MEDICATIONS: The patient has been on vancomycin and cefepime now for a total of 9 days. PHYSICAL EXAMINATION: Vital Signs: Temperature is 98.4 degrees, pulse 83, respirations 17, blood pressure 117/67. General: This is a somewhat ill-appearing young female. She is in no acute distress. Head, eyes, ears, nose and throat: She can hear my spoken words and see near objects. She does not have any white patches in her mouth. Neck: No pain with movement. Lungs: There were bibasilar rales. Cardiovascular: Heart rate is regular. Abdomen: Soft and nontender. Neurologic: The patient has a left arm paralysis and a left leg paresis. Extremities: The patient has a PICC in the right arm. That site is not erythematous or purulent. The patient has bilateral leg edema, but no erythema. LABORATORY AND RADIOLOGY: The patient's CBC shows a white count of 7720, hemoglobin 13, platelet count 232,000. Blood gases show a pH of 7.45, a PO2 of 75, and a pCO2 of 46. Creatinine is 0.4. GFR is greater than 60. Chest x-ray shows a stable right lung infiltrate. The infiltrate in the left lung is better. ASSESSMENT AND PLAN: The patient has pneumonia. My plan would be to continue with cefepime and vancomycin for a few more days before trying to switch the patient to an oral antibiotic regimen. COMORBIDITIES: The patient previously had a stroke which resulted in her left arm paralysis and left leg paresis. She also has spina bifida, asthma, a history of seizures which the patient says only involves her legs. The patient previously was a cigarette smoker, but she told me she stopped months ago. cc: Drew Ellis MD
[2019-06-27] MEDS: LIORESAL PO PRN ×3 (13:17→21:16)
[2019-06-27] MEDS: BUSPAR PO SCH ×2 (13:17→21:16)
--- NOTE | 2019-06-27 15:02 | PROVIDER PROGRESS NOTE ---
Progress Note Dr. Todd Progress Note/Pulmonary and or critical care Subjective: The patient is sitting at the bedside chair on NC at 3L and tolerates well. She reports IV morphine helps control her pain and she has no complaint at this time. She is wondering when she can go home and if she is going home with IV antibiotics. No family at the bedside. Input was appreciated from Dr. Noel and other teams on the case. Objective: Vital Signs: T 98.4 (no fever in last 24 hours), [place] 83, RR 17, BP 117/67 and SaO2 93% on NC 3L. Physical Examination: General: Sitting at the bedside chair. No acute distress noted. HEENT: Normocephalic. Trachea midline. Mucosa pink and moist Chest: Even and unlabored. Improving coarse breathing sounds bilatearlly. CVS: Regular rate and rhythm with S1 and S2 appreciated. Abdomen: Soft. Protuberant. Nontender. Bowel sounds present in all 4 quadrants. Extremities: No pedal edema. LLE cold to touch with diminished dorsalis pedis. No cyanosis. No clubbing. Neuro: A/O x3. Speech fluent. Follow commands. Left side hemiplegia noted. Labs and Radiology: Laboratory Results 06/27/19 06/27/19 06/27/19 05:21 05:45 05:45 WBC 7.72 RBC 4.50 Hgb 13.0 Hct 40.5 MCV 90.0 MCH 28.9 MCHC 32.1 L RDW Std Deviation 14.5 Plt Count 232 MPV 10.0 Immature Gran % (Auto) 1.0 H Neut % (Auto) 70.1 Lymph % (Auto) 18.1 L [place] % (Auto) 10.4 H Eos % (Auto) 0.1 Baso % (Auto) 0.3 Immature Gran # (Auto) 0.08 H Neut # (Auto) 5.41 Lymph # (Auto) 1.40 [place] # (Auto) 0.80 H Eos # (Auto) 0.01 Baso # (Auto) 0.02 Specimen Type ARTERIAL Sample Site R RADIAL pH 7.45 pCO2 46 H pO2 75 HCO3 30.2 H Base Excess 6.8 H Oxyhemoglobin 95.9 ABG O2 Sat (Calculated) 21.3 ABG O2 Saturation 99.1 ABG Carboxyhemoglobin 2.60 H ABG Methemoglobin 0.5 Kvng Test YES A-a O2 Difference 96.0 Total Hemoglobin 15.8 Lactate 1.40 Liter Flow 3.0 Blood Gas Modality CANNULA FiO2 % 32.0 Sodium 141 Potassium 4.1 D Chloride 99 Carbon Dioxide 30 Anion Gap 12 BUN 9 Creatinine 0.4 L Estimated GFR/1.73 m2 > 60 BUN/Creatinine Ratio 23 Glucose 85 Calculated Osmolality 279 Calcium 8.9 Assessment: Acute respiratory failure, hypoxemic and hypercapnia. Severe bilateral multilobar pneumonia right greater than left with reactive mediastinal and hilar lymphadenopathy. CXR today shows stable right-sided pneumonia and improved LLL atelectasis vs. pneumonia. Ongoing tobacco use. 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 Aware. Prognosis is guarded. Plan: Continue current treatment and supportive care per admitting and other teams on the case. Weaning oxygen as tolerated. Antibiotics, including Cefepime and Vancomycin per Dr. Ellis. Bronchodilators. Mucomyst. Appropriate DVT and GI prophylaxis Evaluation time in minutes: 33 minutes.
--- NOTE | 2019-06-27 15:20 | PROGRESS NOTE ---
DATE: 06/27/2019 SUBJECTIVE: The patient looks much better. She seems to be doing okay. She is requesting to go back on her Adderall, which is only 10 b.i.d. I think that is reasonable. In any case, she seems to be doing okay overall. Coughing up stuff. Breathing is better. Her O2 requirement is improved. OBJECTIVE: Vital Signs: Blood pressure 116/68, heart rate 97, respiratory rate 18, temperature 97.9 degrees. Cardiovascular: Regular rate and rhythm. Pulmonary: Bilateral breath sounds. Clear to auscultation. Gastrointestinal: Abdomen soft, nontender, nondistended. Bowel sounds were positive. LABORATORY DATA: White count is 7, hemoglobin and hematocrit 13 and 40, platelets 232,000; pH 7.45, pCO2 46, PaO2 75. Basic was normal. PROBLEM LIST: 1. Acute hypoxic failure due to multilobar pneumonia. She is on antibiotics. We are weaning O2, although I am pretty sure she is going to need home oxygen. Apparently, she already has home oxygen but only with exertion. I think she will need it at rest. We will continue to attempt to clarify it. 2. Multilobar pneumonia. I believe she is on day 6 of cefepime, day [address] Ellis' count is not clear, although according to his note he says she needs it for few more days. When I talk to him today it sounds like she could be switched to p.o. so I am not entirely sure, but I think she is going to need oxygen to go home with. We will see what her x-ray shows tomorrow. DISPOSITION: Hopefully home in the next 1 to 2 days pending disaster recovery consultant work. cc: Medardo Noel MD
[2019-06-27] MEDS: LATUDA PO SCH (21:15)
[2019-06-27] MEDS: DESYREL PO SCH (21:16)
[2019-06-27] MEDS: KLONOPIN PO SCH (21:16)
[2019-06-27] MEDS: NS NEB INH SCH (22:01)
[2019-06-28 06:21] LABS: BASO# 0.02 X1000 (0.0-0.2); BASO% 0.3 % (0.0-0.8); HEMATOCRIT 39.4 % (37.0-47.0); HEMOGLOBIN 12.7 g/dL (12.0-16.0); IMM GRAN# 0.08 X1000 (0.0-0.04); IMM GRAN% 1.3 % (0.0-0.5); LYMPH# 1.58 X1000 (1.2-3.4); LYMPH% 25.2 % (20.5-51.1); MCH 28.8 PG (27-31); MCHC 32.2 g/dL (33-37); MCV 89.3 FL (81-99); MONO# 0.61 X1000 (0.11-0.59); MONO% 9.7 % (1.7-9.3); MPV 9.5 FL (7.4-10.4); NEUT# 3.97 X1000 (1.4-6.5); NEUT% 63.5 % (42.2-75.2); PLT 224 X1000 (130-400); RBC 4.41 XMIL (4.2-5.4); RDW 14.6 % (11.5-14.5); WBC 6.26 X1000 (4.8-10.8)
[2019-06-28 06:39] LABS: AGAP 10; BUN 9 mg/dL (8-22); CALCIUM 8.6 mg/dL (8.8-10.2); CHLORIDE 101 mmol/L (98-107); COSMO 279; CREATININE 0.4 mg/dL (0.5-0.9); ESTIMATED GFR > 60; GLUCOSE 89 mg/dL (70-104); POTASSIUM 3.7 mmol/L (3.5-5.1); SODIUM 141 mmol/L (136-145); TCO2 30 mmol/L (25-35)
[2019-06-28] MEDS: MAXIPIME 2 GM/NS 2 GM/100 ML IVPB IV SCH ×3 (06:45→23:25)
[2019-06-28] MEDS: CARDIZEM PO SCH ×3 (06:45→21:28)
[2019-06-28] MEDS: ADDERALL PO SCH ×2 (06:45→13:25)
--- NOTE | 2019-06-28 07:47 | Diag Imaging Result Doc PS360 ---
EXAM: CHEST-1 VIEW INDICATION: SOB TECHNIQUE: One view COMPARISON: 06/27/2019 FINDINGS: Airspace consolidation throughout the right lung is stable. Mild left basilar atelectasis and/or infiltrate is unchanged. No new consolidation is identified. Cardiac silhouette is stable. IMPRESSION: Stable chest. Electronically signed by Vadim Boyle 06/28/2019 7:45 AM
[2019-06-28] MEDS: SENOKOT PO SCH ×2 (08:46→21:28)
[2019-06-28] MEDS: ASPIRIN PO SCH (08:46)
[2019-06-28] MEDS: PEPCID PO SCH (08:46)
[2019-06-28] MEDS: EFFEXOR XR PO SCH ×2 (08:48→21:29)
[2019-06-28] MEDS: KEPPRA PO SCH ×2 (08:48→21:28)
[2019-06-28] MEDS: PERCOCET-10 PO PRN ×3 (08:48→22:41)
[2019-06-28] MEDS: TOPROL XL PO SCH ×2 (08:48→21:28)
[2019-06-28] MEDS: LASIX PO SCH (08:48)
--- NOTE | 2019-06-28 09:01 | INFECTIOUS DISEASE PROGRESS NO ---
DATE: 06/28/2019 PRESENT ILLNESS: The patient has bilateral pneumonia. MEDICATIONS: The patient has been on vancomycin and cefepime now for a total of 10 days. PHYSICAL EXAMINATION: Vital Signs: Temperature is 97.5 degrees, pulse 76, respirations 16, blood pressure 113/70. General: This is a somewhat ill-appearing, young female. She is in no acute distress, however. Head, Eyes, Ears, Nose, and Throat: She can hear my spoken words and see near objects. She does not have any white coating of her tongue. She does not have any ulcers in her mouth either. Neck: No stiffness. Lungs: There were bibasilar rales. Cardiovascular: Heart rate is regular. Abdomen: Soft and nontender. Neurologic: The patient has a left arm paralysis and a left leg paresis. Extremities: The patient has a PICC in her right arm. The site is not erythematous or tender. The patient has bilateral leg edema but no erythema. LAB AND RADIOLOGY: Chest x-ray shows stable right lung and left basilar infiltrates. CBC shows a white count of 6260, hemoglobin 12.7, platelet count of 224,000. Creatinine is 0.4. GFR is greater than 60. ASSESSMENT AND PLAN: The patient has bilateral pneumonia. My plan would be to send the patient home on her current antibiotics, namely cefepime and vancomycin, for 11 more days. At the end of that, the patient will be seen at my office for physical examination and also for a chest x-ray. COMORBIDITIES: The patient has had a stroke which has resulted in her having a left arm paralysis and a left leg paresis. She also has spina bifida, asthma, seizures which the patient says only involves her legs. The patient was a cigarette smoker but the patient said she had stopped it months ago. cc: Drew Ellis MD
[2019-06-28] MEDS: VANCOMYCIN 2,000 MG in NS 500 ML IV SCH ×2 (09:02→21:30)
[2019-06-28] MEDS: PATIENT'S OWN MED PO SCH ×2 (09:03→16:00)
[2019-06-28] MEDS: NEURONTIN PO SCH ×5 (09:04→21:29)
[2019-06-28] MEDS: XOPENEX NEB INH SCH ×3 (09:32→21:15)
[2019-06-28] MEDS: NS NEB INH SCH ×2 (09:32→16:03)
[2019-06-28] MEDS: MUCOMYST 20% INH SCH ×2 (09:32→21:15)
[2019-06-28] MEDS: MORPHINE IV PRN (11:20)
[2019-06-28] MEDS: BUSPAR PO SCH ×2 (13:25→21:29)
--- NOTE | 2019-06-28 14:17 | PROGRESS NOTE ---
DATE: 06/28/2019 SUBJECTIVE: The patient has no major complaints. OBJECTIVE: Vital Signs: Blood pressure 133/79, heart rate 89, respiratory rate 17, temperature 98.1 degrees, saturating 95%. Cardiovascular: Regular rate and rhythm. Pulmonary: Bilateral breath sounds. Clear to auscultation. GI: Soft, nontender, nondistended. Bowel sounds are positive. IMAGING AND LABORATORY DATA: White count 6, hemoglobin and hematocrit 12 and 39, platelets 224,000. Basic looked okay. Chest x-ray is stable. PROBLEM LIST: 1. Multilobar pneumonia. She is on day 7 of cefepime, day [address] Ellis is planning to send her home on intravenous antibiotics. From his standpoint, she can go home. In any case, Dr. Todd would like to monitor her for a little bit longer. I have not seen his note, but I have discussed the case with him. 2. Acute hypoxic respiratory failure. That is improving. She is already on home oxygen. That has already been set up. She still will need it continuously. 3. History of spina bifida, cerebrovascular accident with residual left-sided hemiparesis. She seems to be doing better. I think tomorrow, if she is stable, I am going to let her go home. She is going to go out on intravenous antibiotics. She is already on oxygen, so I think we have probably reached end point. cc: Medardo Noel MD
--- NOTE | 2019-06-28 15:57 | PROVIDER PROGRESS NOTE ---
Progress Note Dr. Todd Progress Note/Pulmonary and or critical care Subjective: The patient is sitting at the bedside chair on NC at 2L and tolerates well. She states she is ready to go home and she has no complaint at this time. No family at the bedside. Input was appreciated from Dr. Noel and other teams on the case. Objective: Vital Signs: T 98.1 (no fever in last 24 hours), CT 89, RR 17, BP 133/79 and SaO2 95% on NC 3L. Physical Examination: General: Sitting at the bedside chair. No acute distress noted. HEENT: Normocephalic. Trachea midline. Mucosa pink and moist Chest: Even and unlabored. LLL inspiratory crackles. CVS: Regular rate and rhythm with S1 and S2 appreciated. Abdomen: Soft. Protuberant. Nontender. Bowel sounds present in all 4 quadrants. Extremities: No pedal edema. LLE cold to touch with diminished dorsalis pedis. No cyanosis. No clubbing. Neuro: A/O x3. Speech fluent. Follow commands. Left side hemiplegia noted. Labs and Radiology: Laboratory Results 06/28/19 06/28/19 05:50 05:50 WBC 6.26 RBC 4.41 Hgb 12.7 Hct 39.4 MCV 89.3 MCH 28.8 MCHC 32.2 L RDW Std Deviation 14.6 H Plt Count 224 MPV 9.5 Immature Gran % (Auto) 1.3 H Neut % (Auto) 63.5 Lymph % (Auto) 25.2 [place] % (Auto) 9.7 H Eos % (Auto) 0.0 Baso % (Auto) 0.3 Immature Gran # (Auto) 0.08 H Neut # (Auto) 3.97 Lymph # (Auto) 1.58 [place] # (Auto) 0.61 H Eos # (Auto) 0.00 Baso # (Auto) 0.02 Sodium 141 Potassium 3.7 Chloride 101 Carbon Dioxide 30 Anion Gap 10 BUN 9 Creatinine 0.4 L Estimated GFR/1.73 m2 > 60 BUN/Creatinine Ratio 23 Glucose 89 Calculated Osmolality 279 Calcium 8.6 L Assessment: Acute respiratory failure, hypoxemic and hypercapnia. Severe bilateral multilobar pneumonia right greater than left with reactive mediastinal and hilar lymphadenopathy. CXR today shows stable airspace consolidation throughout the right lung with mild left basilar atelectasis +/- i nfiltrate. Ongoing tobacco use. 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 Aware. Prognosis is guarded. Plan: Weaning oxygen as tolerated. Antibiotics, including Cefepime and Vancomycin per Dr. Ellis. Bronchodilators. Mucomyst. Appropriate DVT and GI prophylaxis
[2019-06-28] MEDS: LIORESAL PO PRN (16:01)
[2019-06-28] MEDS: KLONOPIN PO SCH (21:28)
[2019-06-28] MEDS: LATUDA PO SCH (21:28)
[2019-06-28] MEDS: DESYREL PO SCH (21:28)
[2019-06-29] MEDS: ADDERALL PO SCH ×2 (06:22→13:36)
[2019-06-29] MEDS: CARDIZEM PO SCH ×2 (06:22→13:36)
[2019-06-29] MEDS: MAXIPIME 2 GM/NS 2 GM/100 ML IVPB IV SCH ×2 (06:22→14:16)
--- NOTE | 2019-06-29 06:57 | Diag Imaging Result Doc PS360 ---
EXAM: CHEST-1 VIEW HISTORY: SOB TECHNIQUE: Single view COMPARISON: 06/28/2019 FINDINGS: The lungs are well expanded. The heart is mildly prominent and there is vascular distention. No pleural effusions identified. No change in the right-sided portacatheter. No change in the right lung infiltrates. IMPRESSION: No interval improvement Electronically signed by Blue Workman 06/29/2019 6:54 AM
[2019-06-29] MEDS: XOPENEX NEB INH SCH ×2 (07:37→15:29)
[2019-06-29] MEDS: MUCOMYST 20% INH SCH (07:37)
[2019-06-29 07:47] LABS: BASO# 0.01 X1000 (0.0-0.2); BASO% 0.2 % (0.0-0.8); EOS# 0.01 X1000 (0.0-0.7); EOS% 0.2 % (0.0-10.0); HEMATOCRIT 38.9 % (37.0-47.0); HEMOGLOBIN 12.5 g/dL (12.0-16.0); IMM GRAN# 0.06 X1000 (0.0-0.04); IMM GRAN% 0.9 % (0.0-0.5); LYMPH# 1.49 X1000 (1.2-3.4); LYMPH% 22.5 % (20.5-51.1); MCH 28.8 PG (27-31); MCHC 32.1 g/dL (33-37); MCV 89.6 FL (81-99); MONO% 10.6 % (1.7-9.3); MPV 9.9 FL (7.4-10.4); NEUT# 4.34 X1000 (1.4-6.5); NEUT% 65.6 % (42.2-75.2); PLT 209 X1000 (130-400); RBC 4.34 XMIL (4.2-5.4); RDW 14.6 % (11.5-14.5); WBC 6.61 X1000 (4.8-10.8)
[2019-06-29 07:57] LABS: AGAP 10; BUN 9 mg/dL (8-22); CALCIUM 8.7 mg/dL (8.8-10.2); CHLORIDE 102 mmol/L (98-107); COSMO 283; CREATININE 0.5 mg/dL (0.5-0.9); ESTIMATED GFR > 60; GLUCOSE 92 mg/dL (70-104); POTASSIUM 3.8 mmol/L (3.5-5.1); SODIUM 143 mmol/L (136-145); TCO2 31 mmol/L (25-35)
[2019-06-29] MEDS: VANCOMYCIN 2,000 MG in NS 500 ML IV SCH (09:46)
[2019-06-29] MEDS: PERCOCET-10 PO PRN ×2 (09:48→15:57)
[2019-06-29] MEDS: PEPCID PO SCH (09:49)
[2019-06-29] MEDS: BUSPAR PO SCH (09:49)
[2019-06-29] MEDS: NEURONTIN PO SCH ×2 (09:49→13:36)
[2019-06-29] MEDS: SENOKOT PO SCH (09:49)
[2019-06-29] MEDS: EFFEXOR XR PO SCH (09:49)
[2019-06-29] MEDS: KEPPRA PO SCH (09:49)
[2019-06-29] MEDS: LASIX PO SCH (09:50)
[2019-06-29] MEDS: ASPIRIN PO SCH (09:50)
[2019-06-29] MEDS: TOPROL XL PO SCH (09:50)
[2019-06-29] MEDS: PATIENT'S OWN MED PO SCH (10:38)
[2019-06-29 11:38] VITALS: BP 116/74
[2019-06-29] MEDS: MORPHINE IV PRN (12:26)
[2019-06-29] MEDS: NS NEB INH SCH (15:29)
--- NOTE | 2019-06-29 17:16 | INFECTIOUS DISEASE PROGRESS NO ---
DATE: 06/29/2019 PRESENT ILLNESS: The patient has pneumonia. It appears to be involving just the right lung at this time and not both lungs, which is what she had when she was admitted to the hospital. MEDICATIONS: This is the 11th day of treatment with vancomycin and cefepime. PHYSICAL EXAMINATION: Vital Signs: Temperature is 99 degrees, pulse 81, respirations 18, blood pressure is 106/62. General: This is a somewhat ill-appearing young female. She is in no acute distress. Head/eyes/ears/nose/throat: She can hear my spoken words and see near objects. She does not have any white patches in her mouth. Neck: Neck no pain with movement. Lungs: Clear to auscultation. Cardiovascular: Heart rate is regular. Abdomen: Soft and nontender. Neurologic: The patient has a left arm paralysis and left leg paresis. Extremities: The patient has a PICC in her arm. The site is not erythematous or purulent. The patient has bilateral leg edema but no erythema. LAB AND X-RAY: Chest x-ray shows a right lung infiltrate and none in the left lung. The patient's CBC today shows a white count of 6610, hemoglobin 12.5, and platelet count 209,000. Creatinine is 0.5, GFR is greater than 60. Chest x-ray shows a right lung infiltrate, infiltrate and none in the left lung. ASSESSMENT AND PLAN: Patient has pneumonia. Our plan is to send the patient home on IV antibiotics namely cefepime and vancomycin. The patient will have a followup appointment in my office at which time she will be examined and also a repeat chest x-ray will be obtained. COMORBIDITIES: The patient had a stroke which resulted in her having a left arm paralysis and left leg paresis. She also has spina bifida, asthma, seizures, which the patient says only affects her legs. The patient was a cigarette smoker but she said she stopped it months ago. cc: Drew Ellis MD
--- NOTE | 2019-06-29 18:30 | DISCHARGE SUMMARY ---
ADMISSION DATE: 06/18/2019 DISCHARGE DATE: 06/29/2019 DISCHARGE SUMMARY: 1. Right upper, middle and lower lobe multilobar pneumonia felt to be a gram-negative type of pneumonia. 2. Acute hypoxic respiratory failure. 3. History of spina bifida. We will continue to monitor. Doing okay otherwise. CONSULTATIONS: 1. Dr. Sameul and Dr. Todd, pulmonology. 2. Dr. Ellis, Infectious Diseases. HOSPITAL COURSE: Briefly, this is a 28-year-old female. She has a significant history of spina bifida. 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 She has had recurrent pneumonia before so now she has multilobar pneumonia. She was placed on broad-spectrum antibiotics, BiPAP. She was requiring heavy amount of oxygen initially. ID was consulted. Pulmonary was consulted. Dr. Ellis recommended vancomycin and cefepime and stopped Zosyn because she is allergic to amoxicillin, pretty reasonable. I did add Flagyl because I was concerned she had aspiration, especially since it was mostly a right-sided infiltrate that ended up being discontinued; however, she improved and slowly we were able to wean her down to nasal cannula, although it took several days. She was on BiPAP intermittently. Her chest x-ray showed improved left lower lobe pneumonia, but she had persistent right-sided pneumonia even today. No fevers for 24 hours. She is 95% on 3 L, which she does wear oxygen. She just now needs it continuously, and she was felt stable for discharge on the . Her white count was normal. It was elevated on admission at 16,000. None of her cultures end up growing anything, sputum or blood. I do not know if she had a vaginal culture. Yeast in her urine, but that was most likely contaminant. Discharge medications are Adderall 10 b.i.d., aspirin 81 daily, baclofen 20 four times a day, BuSpar 7.5 b.i.d., Klonopin 0.5 at bedtime, Effexor 75 b.i.d., Percocet 4 times a day at the dose of 10 mg, gabapentin 800 four times a day, Latuda 80 at bedtime, Keppra 500 b.i.d., Toprol 12.5 b.i.d., Nucynta 150 b.i.d., Senna 8.6 b.i.d., trazodone 50 at bedtime, ranitidine 150 daily. She is going to go home on IV antibiotic. She had a PICC placed per Dr. Ellis. He is planning for cefepime and vancomycin for 11 more days and then follow up with him outpatient chest x-ray. She will need an x-ray in 4 to 6 weeks. It is probably going to take that long to completely resolve. Overall, she is doing better. cc: Medardo Noel MD
--- NOTE | 2019-06-29 18:47 | PROVIDER PROGRESS NOTE ---
Progress Note Dr. Todd Progress Note/Pulmonary and or critical care Subjective: The patient is sitting at the bedside chair on NC at 2L. She is calm and cooperative. She has no complaint at this time. Objective: Vital Signs: T 99 (no fever in last 24 hours), ID 81, RR 18, BP 106/62 and SaO2 94% on NC 2L. Physical Examination: General: Sitting at the bedside chair. No acute distress noted. HEENT: Normocephalic. Trachea midline. Mucosa pink and moist Chest: Even and unlabored. Improving air entry bilaterally. CVS: Regular rate and rhythm with S1 and S2 appreciated. Abdomen: Soft. Protuberant. Nontender. Bowel sounds present in all 4 quadrants. Extremities: No pedal edema. LLE cold to touch with diminished dorsalis pedis. No cyanosis. No clubbing. Neuro: A/O x3. Speech fluent. Follow commands. Left side hemiplegia noted. Labs and Radiology: Laboratory Results 06/29/19 06/29/19 07:21 07:21 WBC 6.61 RBC 4.34 Hgb 12.5 Hct 38.9 MCV 89.6 MCH 28.8 MCHC 32.1 L RDW Std Deviation 14.6 H Plt Count 209 MPV 9.9 Immature Gran % (Auto) 0.9 H Neut % (Auto) 65.6 Lymph % (Auto) 22.5 Lucas % (Auto) 10.6 H Eos % (Auto) 0.2 Baso % (Auto) 0.2 Immature Gran # (Auto) 0.06 H Neut # (Auto) 4.34 Lymph # (Auto) 1.49 Lucas # (Auto) 0.70 H Eos # (Auto) 0.01 Baso # (Auto) 0.01 Sodium 143 Potassium 3.8 Chloride 102 Carbon Dioxide 31 Anion Gap 10 BUN 9 Creatinine 0.5 Estimated GFR/1.73 m2 > 60 BUN/Creatinine Ratio 18 Glucose 92 Calculated Osmolality 283 Calcium 8.7 L Assessment: Acute respiratory failure, hypoxemic and hypercapnia. Severe bilateral multilobar pneumonia right greater than left with reactive mediastinal and hilar lymphadenopathy. CXR today shows no interval improvement with stable right lung infiltrates. Ongoing tobacco use. 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 Aware. Plan: Weaning oxygen as tolerated. Antibiotics, including Cefepime and Vancomycin per Dr. Ellis. Bronchodilators. Mucomyst. Appropriate DVT and GI prophylaxis Ok to be discharged.
== END 2019-06-29 16:15 | disposition home health service (06) | DRG 871 ==
LOC: SUPCPDRO → ED 09:41 → SUATTDRO 23:15 → EDIPHOLD 23:15 → ICU 06-19 06:26 → 2N 06-26 17:38 → 3N 06-28 15:33
PROVIDERS: ATTEND Internal Medicine